=== PATIENT | male | born 1960 | race Caucasian/White ===

== ENCOUNTER 2020-01-22 16:37 | Inpatient (IN) ==
[2020-01-22] MEDS ORDERED: Ipratropium/Albuterol Neb 3 ML IH PRN (17:39)
[2020-01-22] MEDS ORDERED: Dextrose Gel 15 GM/37.5 ML TUBE PO PRN ×2 (17:39)
[2020-01-22] MEDS: *HR* Metformin 500 MG TABLET PO SCH (21:39)
[2020-01-22] MEDS: cephALEXin 500 MG CAPSULE PO SCH (21:40)
[2020-01-22] MEDS: Doxycycline 100 MG CAPSULE PO SCH (21:40)
[2020-01-22] MEDS: Mirtazapine 15 MG TABLET PO SCH (21:40)
[2020-01-22] MEDS: *HR* OxyCODONE/APAP 5/325 TABLET PO PRN (21:40)
[2020-01-22] MEDS: Gabapentin 400 MG CAPSULE PO SCH (21:40)
[2020-01-22] MEDS: GlipiZIDE 5 MG TABLET PO SCH (21:40)
[2020-01-22] MEDS: *HR* Enoxaparin 150 MG/ML SYRINGE SQ SCH (21:41)
[2020-01-23] MEDS: Baclofen 10 MG TABLET PO SCH ×3 (04:59→16:54)
[2020-01-23] MEDS: *HR* Enoxaparin 150 MG/ML SYRINGE SQ SCH ×2 (05:24→16:54)
[2020-01-23] MEDS: *HR* OxyCODONE/APAP 5/325 TABLET PO PRN ×3 (05:36→20:56)
[2020-01-23 05:49] LABS: Basophils % 0.4 %; Eosinophils # 0.4 K/mcL (0.0-0.6); Eosinophils % 5.7 %; Hematocrit 36.9 % (37.5-50.1); Hemoglobin 12.2 g/dL (12.9-16.9); Lymphocytes # 1.1 K/mcL (0.6-4.6); Lymphocytes % 15.1 %; Mean Corpuscular HGB Conc 33.1 g/dL (31.6-35.5); Mean Corpuscular Hemoglobin 29.2 pg (28.0-33.3); Mean Corpuscular Volume 88.3 fL (83.0-100.0); Mean Platelet Volume 9.5 fL (9.4-12.4); Monocytes # 0.6 K/mcL (0.0-1.3); Neutrophils # 5.1 K/mcL (1.6-8.9); Platelet Count 275 K/mcL (140-400); Red Blood Count 4.18 M/mcL (4.19-5.50); Segmented Neutrophils % 69.8 %; White Blood Count 7.3 K/mcL (4.3-11.1)
[2020-01-23 06:14] LABS: BUN/Creatinine Ratio 24 (6-26); Blood Urea Nitrogen 22 mg/dL (8-23); Calcium 8.9 mg/dL (8.6-10.3); Carbon Dioxide 30 mEq/L (23-29); Chloride 96 mEq/L (98-107); Glucose 228 mg/dL (70-105); Osmolality,Calculated 287 (280-300); Potassium 4.8 mEq/L (3.5-5.1); Sodium 133 mEq/L (136-145); eGFR For African Americans > 60 (> 60); eGFR For Non-African Americans > 60 (> 60)
[2020-01-23] MEDS: PARoxetine 20 MG TABLET PO SCH (08:38)
[2020-01-23] MEDS: *HR* Metformin 500 MG TABLET PO SCH ×2 (08:38→16:54)
[2020-01-23] MEDS: amLODIPine 5 MG TABLET PO SCH (08:39)
[2020-01-23] MEDS: Cyanocobalamin (B-12) 1,000 MCG TABLET PO SCH (08:39)
[2020-01-23] MEDS: Doxycycline 100 MG CAPSULE PO SCH ×2 (08:39→20:56)
[2020-01-23] MEDS: Furosemide 20 MG TABLET PO SCH (08:39)
[2020-01-23] MEDS: Aspirin Enteric Coated 81 MG Tablet PO SCH (08:39)
[2020-01-23] MEDS: Insulin LISPRO 300 UNITS/3 ML VIAL SQ SCH ×3 (08:39→16:55)
[2020-01-23] MEDS: Gabapentin 400 MG CAPSULE PO SCH ×4 (08:39→20:56)
[2020-01-23] MEDS: GlipiZIDE 5 MG TABLET PO SCH ×2 (08:39→16:54)
[2020-01-23] MEDS: (Linagliptin [Tradjenta] 5 MG) PO SCH (08:42)
[2020-01-23] MEDS: cephALEXin 500 MG CAPSULE PO SCH ×3 (08:45→20:56)
[2020-01-23] MEDS ORDERED: Leptospermum Honey Gel 44 ML TUBE TP SCH (09:00)
[2020-01-23] MEDS: BACLOFEN 20 MG PO SCH (18:28)
[2020-01-23] MEDS: Mirtazapine 15 MG TABLET PO SCH (20:56)
[2020-01-23] MEDS: Simethicone 80 MG TAB.CHEW PO PRN (21:50)
[2020-01-24] MEDS: Baclofen 10 MG TABLET PO SCH ×4 (01:25→23:59)
[2020-01-24] MEDS: *HR* OxyCODONE/APAP 5/325 TABLET PO PRN ×4 (03:58→23:16)
[2020-01-24] MEDS: *HR* Enoxaparin 150 MG/ML SYRINGE SQ SCH ×2 (06:02→17:14)
[2020-01-24] MEDS: Gabapentin 400 MG CAPSULE PO SCH ×4 (08:13→20:03)
[2020-01-24] MEDS: cephALEXin 500 MG CAPSULE PO SCH ×3 (08:13→20:03)
[2020-01-24] MEDS: Cyanocobalamin (B-12) 1,000 MCG TABLET PO SCH (08:13)
[2020-01-24] MEDS: PARoxetine 20 MG TABLET PO SCH (08:18)
[2020-01-24] MEDS: Aspirin Enteric Coated 81 MG Tablet PO SCH (08:18)
[2020-01-24] MEDS: *HR* Metformin 500 MG TABLET PO SCH ×2 (08:19→17:14)
[2020-01-24] MEDS: amLODIPine 5 MG TABLET PO SCH (08:19)
[2020-01-24] MEDS: Insulin LISPRO 300 UNITS/3 ML VIAL SQ SCH ×3 (08:19→17:15)
[2020-01-24] MEDS: GlipiZIDE 5 MG TABLET PO SCH ×2 (08:19→17:14)
[2020-01-24] MEDS: (Linagliptin [Tradjenta] 5 MG) PO SCH (08:19)
[2020-01-24] MEDS: Furosemide 20 MG TABLET PO SCH (08:19)
[2020-01-24] MEDS: Doxycycline 100 MG CAPSULE PO SCH ×2 (08:19→20:03)
[2020-01-24] MEDS: Simethicone 80 MG TAB.CHEW PO PRN (10:40)
[2020-01-24] MEDS: Mirtazapine 15 MG TABLET PO SCH (20:03)
[2020-01-25] MEDS: *HR* Enoxaparin 150 MG/ML SYRINGE SQ SCH ×2 (05:11→16:43)
[2020-01-25] MEDS: *HR* OxyCODONE/APAP 5/325 TABLET PO PRN ×3 (05:16→18:36)
[2020-01-25] MEDS: Insulin LISPRO 300 UNITS/3 ML VIAL SQ SCH ×3 (08:14→16:41)
[2020-01-25] MEDS: Aspirin Enteric Coated 81 MG Tablet PO SCH (08:15)
[2020-01-25] MEDS: *HR* Metformin 500 MG TABLET PO SCH ×2 (08:15→16:42)
[2020-01-25] MEDS: GlipiZIDE 5 MG TABLET PO SCH ×2 (08:15→16:42)
[2020-01-25] MEDS: Baclofen 10 MG TABLET PO SCH ×2 (08:15→16:41)
[2020-01-25] MEDS: cephALEXin 500 MG CAPSULE PO SCH ×3 (08:16→21:30)
[2020-01-25] MEDS: (Linagliptin [Tradjenta] 5 MG) PO SCH (08:16)
[2020-01-25] MEDS: Cyanocobalamin (B-12) 1,000 MCG TABLET PO SCH (08:16)
[2020-01-25] MEDS: Furosemide 20 MG TABLET PO SCH (08:16)
[2020-01-25] MEDS: Gabapentin 400 MG CAPSULE PO SCH ×4 (08:16→21:30)
[2020-01-25] MEDS: PARoxetine 20 MG TABLET PO SCH (08:16)
[2020-01-25] MEDS: amLODIPine 5 MG TABLET PO SCH (08:16)
[2020-01-25] MEDS ORDERED: Leptospermum Honey Gel 44 ML TUBE TP SCH (09:00)
[2020-01-25 14:32] LABS: Basophils % 0.6 %; Eosinophils # 0.4 K/mcL (0.0-0.6); Eosinophils % 6.5 %; Hematocrit 38.2 % (37.5-50.1); Hemoglobin 12.5 g/dL (12.9-16.9); Immature Granulocytes % 0.8 % (0-4); Lymphocytes # 1.1 K/mcL (0.6-4.6); Lymphocytes % 16.5 %; Mean Corpuscular HGB Conc 32.7 g/dL (31.6-35.5); Mean Corpuscular Hemoglobin 28.9 pg (28.0-33.3); Mean Corpuscular Volume 88.4 fL (83.0-100.0); Mean Platelet Volume 9.1 fL (9.4-12.4); Monocytes # 0.6 K/mcL (0.0-1.3); Monocytes % 8.5 %; Neutrophils # 4.3 K/mcL (1.6-8.9); Platelet Count 299 K/mcL (140-400); Red Blood Count 4.32 M/mcL (4.19-5.50); Red Cell Distribution Width 14.1 % (11.5-14.5); Segmented Neutrophils % 67.1 %; White Blood Count 6.4 K/mcL (4.3-11.1)
[2020-01-25] MEDS: Simethicone 80 MG TAB.CHEW PO PRN (16:47)
[2020-01-25 18:06] LABS: Bilirubin,Urine Negative (Negative); Blood,Urine Large (Negative); Clarity,Urine Cloudy (Clear); Color,Urine Brown (Yellow); Glucose,Urine (UA) 100 mg/dL (Normal); Ketones,Urine Negative (Negative); Leukocyte Esterase,Urine Negative (Negative); Nitrite,Urine Negative (Negative); PH,Urine 5.5 pH Units (5.0-8.0); Protein,Urine 100 mg/dL (Neg-Trace); Urobilinogen,Urine Normal (Normal)
[2020-01-25 18:07] LABS: Bacteria,Urine Moderate per hpf (None-Few); RBC,Urine TNTC per hpf (0-3); Squamous Epithelial Cell,Urine Few per hpf (None-Few); WBC,Urine 0-3 per hpf (0-3)
[2020-01-25] MEDS: Mirtazapine 15 MG TABLET PO SCH (21:30)
[2020-01-26] MEDS: Baclofen 10 MG TABLET PO SCH ×3 (00:16→17:21)
[2020-01-26] MEDS: *HR* OxyCODONE/APAP 5/325 TABLET PO PRN ×4 (00:20→18:44)
[2020-01-26] MEDS: *HR* Enoxaparin 150 MG/ML SYRINGE SQ SCH ×2 (06:21→17:21)
[2020-01-26] MEDS: Aspirin Enteric Coated 81 MG Tablet PO SCH (08:33)
[2020-01-26] MEDS: Gabapentin 400 MG CAPSULE PO SCH ×4 (08:33→21:20)
[2020-01-26] MEDS: Furosemide 20 MG TABLET PO SCH (08:34)
[2020-01-26] MEDS: Cyanocobalamin (B-12) 1,000 MCG TABLET PO SCH (08:34)
[2020-01-26] MEDS: PARoxetine 20 MG TABLET PO SCH (08:34)
[2020-01-26] MEDS: *HR* Metformin 500 MG TABLET PO SCH ×2 (08:34→17:21)
[2020-01-26] MEDS: amLODIPine 5 MG TABLET PO SCH (08:34)
[2020-01-26] MEDS: GlipiZIDE 5 MG TABLET PO SCH ×2 (08:34→17:21)
[2020-01-26] MEDS: Insulin LISPRO 300 UNITS/3 ML VIAL SQ SCH ×4 (08:34→21:17)
[2020-01-26] MEDS: (Linagliptin [Tradjenta] 5 MG) PO SCH (08:35)
[2020-01-26] MEDS: Acetaminophen 325 MG TABLET PO PRN (08:40)
[2020-01-26] MEDS: cephALEXin 500 MG CAPSULE PO SCH ×3 (08:40→21:23)
[2020-01-26 08:51] LABS: Basophils % 0.4 %; Eosinophils # 0.4 K/mcL (0.0-0.6); Eosinophils % 4.8 %; Hemoglobin 11.6 g/dL (12.9-16.9); Immature Granulocytes % 0.5 % (0-4); Lymphocytes # 1.1 K/mcL (0.6-4.6); Lymphocytes % 14.4 %; Mean Corpuscular HGB Conc 32.2 g/dL (31.6-35.5); Mean Corpuscular Hemoglobin 28.8 pg (28.0-33.3); Mean Corpuscular Volume 89.3 fL (83.0-100.0); Mean Platelet Volume 9.7 fL (9.4-12.4); Monocytes # 0.5 K/mcL (0.0-1.3); Monocytes % 7.1 %; Neutrophils # 5.3 K/mcL (1.6-8.9); Platelet Count 301 K/mcL (140-400); Red Blood Count 4.03 M/mcL (4.19-5.50); Red Cell Distribution Width 14.3 % (11.5-14.5); Segmented Neutrophils % 72.8 %; White Blood Count 7.3 K/mcL (4.3-11.1)
[2020-01-26 09:24] LABS: BUN/Creatinine Ratio 30 (6-26); Blood Urea Nitrogen 27 mg/dL (8-23); Calcium 8.5 mg/dL (8.6-10.3); Carbon Dioxide 31 mEq/L (23-29); Chloride 95 mEq/L (98-107); Glucose 240 mg/dL (70-105); Osmolality,Calculated 289 (280-300); Potassium 4.9 mEq/L (3.5-5.1); Sodium 133 mEq/L (136-145); eGFR For African Americans > 60 (> 60); eGFR For Non-African Americans > 60 (> 60)
[2020-01-26 11:44] LABS: Bilirubin,Urine Negative (Negative); Blood,Urine Large (Negative); Clarity,Urine Cloudy (Clear); Color,Urine Amber (Yellow); Glucose,Urine (UA) 250 mg/dL (Normal); Ketones,Urine Negative (Negative); Leukocyte Esterase,Urine Negative (Negative); Nitrite,Urine Negative (Negative); PH,Urine 5.5 pH Units (5.0-8.0); Protein,Urine >=300 mg/dL (Neg-Trace); Urobilinogen,Urine Normal (Normal)
[2020-01-26 11:51] LABS: Bacteria,Urine Many per hpf (None-Few); RBC,Urine TNTC per hpf (0-3); Squamous Epithelial Cell,Urine Few per hpf (None-Few)
[2020-01-26] MEDS: Mirtazapine 15 MG TABLET PO SCH (21:20)
[2020-01-27] MEDS: *HR* OxyCODONE/APAP 5/325 TABLET PO PRN ×4 (00:41→20:14)
[2020-01-27] MEDS: Baclofen 10 MG TABLET PO SCH ×4 (00:41→23:47)
[2020-01-27 06:49] LABS: Basophils % 0.3 %; Eosinophils # 0.3 K/mcL (0.0-0.6); Eosinophils % 3.5 %; Hematocrit 31.6 % (37.5-50.1); Hemoglobin 10.2 g/dL (12.9-16.9); Immature Granulocytes % 0.4 % (0-4); Lymphocytes # 1.2 K/mcL (0.6-4.6); Lymphocytes % 12.5 %; Mean Corpuscular HGB Conc 32.3 g/dL (31.6-35.5); Mean Corpuscular Volume 89.8 fL (83.0-100.0); Mean Platelet Volume 9.7 fL (9.4-12.4); Monocytes # 0.8 K/mcL (0.0-1.3); Neutrophils # 7.2 K/mcL (1.6-8.9); Platelet Count 277 K/mcL (140-400); Red Blood Count 3.52 M/mcL (4.19-5.50); Red Cell Distribution Width 14.2 % (11.5-14.5); Segmented Neutrophils % 75.3 %; White Blood Count 9.5 K/mcL (4.3-11.1)
[2020-01-27 07:13] LABS: BUN/Creatinine Ratio 31 (6-26); Blood Urea Nitrogen 31 mg/dL (8-23); Calcium 8.3 mg/dL (8.6-10.3); Carbon Dioxide 27 mEq/L (23-29); Chloride 98 mEq/L (98-107); Glucose 235 mg/dL (70-105); Osmolality,Calculated 290 (280-300); Potassium 4.8 mEq/L (3.5-5.1); Sodium 133 mEq/L (136-145); eGFR For African Americans > 60 (> 60); eGFR For Non-African Americans > 60 (> 60)
[2020-01-27] MEDS: *HR* Enoxaparin 150 MG/ML SYRINGE SQ SCH ×2 (07:53→16:33)
[2020-01-27] MEDS: cephALEXin 500 MG CAPSULE PO SCH ×3 (07:55→20:17)
[2020-01-27] MEDS: Insulin LISPRO 300 UNITS/3 ML VIAL SQ SCH ×4 (07:55→20:15)
[2020-01-27] MEDS: Cyanocobalamin (B-12) 1,000 MCG TABLET PO SCH (07:55)
[2020-01-27] MEDS: Furosemide 20 MG TABLET PO SCH (07:55)
[2020-01-27] MEDS: Aspirin Enteric Coated 81 MG Tablet PO SCH (07:55)
[2020-01-27] MEDS: amLODIPine 5 MG TABLET PO SCH (07:56)
[2020-01-27] MEDS: PARoxetine 20 MG TABLET PO SCH (07:56)
[2020-01-27] MEDS: GlipiZIDE 5 MG TABLET PO SCH ×2 (07:56→16:31)
[2020-01-27] MEDS: *HR* Metformin 500 MG TABLET PO SCH ×2 (07:56→16:32)
[2020-01-27] MEDS: Gabapentin 400 MG CAPSULE PO SCH ×4 (07:57→20:14)
[2020-01-27] MEDS: (Linagliptin [Tradjenta] 5 MG) PO SCH (07:57)
[2020-01-27] MEDS: Acetaminophen 325 MG TABLET PO PRN (12:11)
[2020-01-27] MEDS: Mirtazapine 15 MG TABLET PO SCH (20:14)
[2020-01-28] MEDS: *HR* OxyCODONE/APAP 5/325 TABLET PO PRN ×3 (03:07→15:26)
[2020-01-28 06:01] LABS: Hematocrit 28.5 % (37.5-50.1); Hemoglobin 9.5 g/dL (12.9-16.9); Mean Corpuscular HGB Conc 33.3 g/dL (31.6-35.5); Mean Corpuscular Hemoglobin 29.6 pg (28.0-33.3); Mean Corpuscular Volume 88.8 fL (83.0-100.0); Mean Platelet Volume 9.5 fL (9.4-12.4); Platelet Count 265 K/mcL (140-400); Red Blood Count 3.21 M/mcL (4.19-5.50); Red Cell Distribution Width 14.2 % (11.5-14.5); White Blood Count 11.5 K/mcL (4.3-11.1)
[2020-01-28] MEDS: *HR* Enoxaparin 150 MG/ML SYRINGE SQ SCH (06:13)
[2020-01-28] MEDS: Insulin LISPRO 300 UNITS/3 ML VIAL SQ SCH ×4 (08:36→21:11)
[2020-01-28] MEDS: Cyanocobalamin (B-12) 1,000 MCG TABLET PO SCH (08:37)
[2020-01-28] MEDS: Aspirin Enteric Coated 81 MG Tablet PO SCH (08:37)
[2020-01-28] MEDS: Baclofen 10 MG TABLET PO SCH ×3 (08:37→23:53)
[2020-01-28] MEDS: Gabapentin 400 MG CAPSULE PO SCH ×4 (08:37→21:10)
[2020-01-28] MEDS: Furosemide 20 MG TABLET PO SCH (08:37)
[2020-01-28] MEDS: amLODIPine 5 MG TABLET PO SCH (08:37)
[2020-01-28] MEDS: GlipiZIDE 5 MG TABLET PO SCH ×2 (08:37→16:15)
[2020-01-28] MEDS: PARoxetine 20 MG TABLET PO SCH (08:37)
[2020-01-28] MEDS: *HR* Metformin 500 MG TABLET PO SCH ×2 (08:37→16:17)
[2020-01-28] MEDS: (Linagliptin [Tradjenta] 5 MG) PO SCH (08:38)
[2020-01-28 09:23] LABS: Alanine Aminotransferase 38 Units/L (7-52); Albumin 3.8 g/dL (3.5-5.7); Alkaline Phosphatase 143 Units/L (34-104); Aspartate Amino Transferase 25 Units/L (13-39); BUN/Creatinine Ratio 26 (6-26); Bilirubin,Total 0.5 mg/dL (0.3-1.0); Blood Urea Nitrogen 27 mg/dL (8-23); Calcium 8.6 mg/dL (8.6-10.3); Carbon Dioxide 25 mEq/L (23-29); Chloride 95 mEq/L (98-107); Globulin 3.7 g/dL (2.4-3.5); Glucose 337 mg/dL (70-105); Osmolality,Calculated 288 (280-300); Potassium 4.9 mEq/L (3.5-5.1); Sodium 130 mEq/L (136-145); Total Protein 7.5 g/dL (6.4-8.9); eGFR For African Americans > 60 (> 60); eGFR For Non-African Americans > 60 (> 60)
[2020-01-28] MEDS: Leptospermum Honey Gel 44 ML TUBE TP SCH (11:29)
[2020-01-28] MEDS ORDERED: *HR* OxyCODONE/APAP 5/325 TABLET PO ONE (15:55)
[2020-01-28] MEDS: Methyl Salicylate/Menthol 57 APPL/57 GM TUBE TP PRN (16:15)
[2020-01-28] MEDS: Mirtazapine 15 MG TABLET PO SCH (21:10)
[2020-01-28] MEDS: *HR* OxyCODONE/APAP 10/325 TABLET PO PRN (22:03)
[2020-01-29] MEDS: *HR* OxyCODONE/APAP 10/325 TABLET PO PRN ×3 (04:07→16:48)
[2020-01-29 04:12] LABS: Hematocrit 26.4 % (37.5-50.1); Hemoglobin 8.5 g/dL (12.9-16.9)
[2020-01-29 04:31] LABS: Alanine Aminotransferase 31 Units/L (7-52); Albumin 3.1 g/dL (3.5-5.7); Albumin/Globulin Ratio 0.9 (1.1-2.2); Alkaline Phosphatase 116 Units/L (34-104); Aspartate Amino Transferase 22 Units/L (13-39); BUN/Creatinine Ratio 25 (6-26); Bilirubin,Total 0.4 mg/dL (0.3-1.0); Blood Urea Nitrogen 35 mg/dL (8-23); Calcium 8.2 mg/dL (8.6-10.3); Carbon Dioxide 28 mEq/L (23-29); Chloride 96 mEq/L (98-107); Globulin 3.5 g/dL (2.4-3.5); Potassium 4.6 mEq/L (3.5-5.1); Sodium 131 mEq/L (136-145); Total Protein 6.6 g/dL (6.4-8.9); eGFR For African Americans > 60 (> 60); eGFR For Non-African Americans 53 (> 60)
[2020-01-29 07:05] LABS: Glucose 229 mg/dL (70-105); Osmolality,Calculated 287 (280-300)
[2020-01-29] MEDS: amLODIPine 5 MG TABLET PO SCH (08:05)
[2020-01-29] MEDS: Cyanocobalamin (B-12) 1,000 MCG TABLET PO SCH (08:05)
[2020-01-29] MEDS: Gabapentin 400 MG CAPSULE PO SCH ×4 (08:05→19:58)
[2020-01-29] MEDS: Aspirin Enteric Coated 81 MG Tablet PO SCH (08:05)
[2020-01-29] MEDS: Furosemide 20 MG TABLET PO SCH (08:05)
[2020-01-29] MEDS: Baclofen 10 MG TABLET PO SCH ×2 (08:05→16:47)
[2020-01-29] MEDS: GlipiZIDE 5 MG TABLET PO SCH ×2 (08:05→16:47)
[2020-01-29] MEDS: PARoxetine 20 MG TABLET PO SCH (08:05)
[2020-01-29] MEDS: (Linagliptin [Tradjenta] 5 MG) PO SCH (08:06)
[2020-01-29] MEDS: Leptospermum Honey Gel 44 ML TUBE TP SCH ×2 (08:06)
[2020-01-29] MEDS: *HR* Metformin 500 MG TABLET PO SCH ×2 (08:06→16:48)
[2020-01-29] MEDS: Insulin LISPRO 300 UNITS/3 ML VIAL SQ SCH ×4 (08:07→19:58)
[2020-01-29] MEDS: Methyl Salicylate/Menthol 57 APPL/57 GM TUBE TP PRN ×2 (08:19→20:01)
[2020-01-29] MEDS ORDERED: Insulin DETEMIR 100 UNIT/ML X5UNITS SQ SCH (12:00)
[2020-01-29] MEDS: Mirtazapine 15 MG TABLET PO SCH (19:57)
[2020-01-29 20:00] LABS: Hematocrit 26.3 % (37.5-50.1); Hemoglobin 8.5 g/dL (12.9-16.9)
[2020-01-29] MEDS ORDERED: Insulin DETEMIR 100 UNIT/ML per UNIT SQ ONE (21:00)
[2020-01-30] MEDS: *HR* OxyCODONE/APAP 10/325 TABLET PO PRN ×4 (00:11→20:28)
[2020-01-30] MEDS: Baclofen 10 MG TABLET PO SCH ×3 (00:11→16:54)
[2020-01-30 05:34] LABS: Hematocrit 25.7 % (37.5-50.1); Hemoglobin 8.4 g/dL (12.9-16.9)
[2020-01-30] MEDS: PARoxetine 20 MG TABLET PO SCH (08:05)
[2020-01-30] MEDS: amLODIPine 5 MG TABLET PO SCH (08:06)
[2020-01-30] MEDS: GlipiZIDE 5 MG TABLET PO SCH ×2 (08:06→16:53)
[2020-01-30] MEDS: Methyl Salicylate/Menthol 57 APPL/57 GM TUBE TP PRN ×2 (08:06→20:29)
[2020-01-30] MEDS: Cyanocobalamin (B-12) 1,000 MCG TABLET PO SCH (08:06)
[2020-01-30] MEDS: Aspirin Enteric Coated 81 MG Tablet PO SCH (08:06)
[2020-01-30] MEDS: Gabapentin 400 MG CAPSULE PO SCH ×4 (08:06→20:28)
[2020-01-30] MEDS: *HR* Metformin 500 MG TABLET PO SCH ×2 (08:06→16:54)
[2020-01-30] MEDS: Insulin LISPRO 300 UNITS/3 ML VIAL SQ SCH ×7 (08:07→20:29)
[2020-01-30] MEDS: Leptospermum Honey Gel 44 ML TUBE TP SCH (08:08)
[2020-01-30] MEDS: Insulin DETEMIR 100 UNIT/ML X5UNITS SQ SCH ×2 (08:08→20:28)
[2020-01-30] MEDS: (Linagliptin [Tradjenta] 5 MG) PO SCH (08:26)
[2020-01-30] MEDS: Mirtazapine 15 MG TABLET PO SCH (20:28)
[2020-01-31] MEDS: Baclofen 10 MG TABLET PO SCH ×4 (01:50→23:38)
[2020-01-31] MEDS: *HR* OxyCODONE/APAP 10/325 TABLET PO PRN ×4 (03:26→21:42)
[2020-01-31 07:19] LABS: Hemoglobin 8.3 g/dL (12.9-16.9)
[2020-01-31] MEDS: GlipiZIDE 5 MG TABLET PO SCH ×2 (08:39→15:36)
[2020-01-31] MEDS: Aspirin Enteric Coated 81 MG Tablet PO SCH (08:39)
[2020-01-31] MEDS: *HR* Metformin 500 MG TABLET PO SCH ×2 (08:40→15:36)
[2020-01-31] MEDS: Gabapentin 400 MG CAPSULE PO SCH ×4 (08:40→21:14)
[2020-01-31] MEDS: PARoxetine 20 MG TABLET PO SCH (08:40)
[2020-01-31] MEDS: Cyanocobalamin (B-12) 1,000 MCG TABLET PO SCH (08:40)
[2020-01-31] MEDS: amLODIPine 5 MG TABLET PO SCH (08:40)
[2020-01-31] MEDS: Insulin LISPRO 300 UNITS/3 ML VIAL SQ SCH ×7 (08:40→20:59)
[2020-01-31] MEDS: Insulin DETEMIR 100 UNIT/ML X5UNITS SQ SCH ×2 (08:41→21:15)
[2020-01-31] MEDS: (Linagliptin [Tradjenta] 5 MG) PO SCH (08:42)
[2020-01-31] MEDS: Leptospermum Honey Gel 44 ML TUBE TP SCH (08:42)
[2020-01-31] MEDS: Methyl Salicylate/Menthol 57 APPL/57 GM TUBE TP PRN (12:45)
[2020-01-31] MEDS: Mirtazapine 15 MG TABLET PO SCH (21:15)
[2020-02-01] MEDS: *HR* OxyCODONE/APAP 10/325 TABLET PO PRN ×3 (04:13→16:58)
[2020-02-01 04:40] LABS: Basophils % 0.5 %; Eosinophils # 0.6 K/mcL (0.0-0.6); Eosinophils % 6.7 %; Hematocrit 27.6 % (37.5-50.1); Immature Granulocytes % 0.5 % (0-4); Lymphocytes # 1.2 K/mcL (0.6-4.6); Lymphocytes % 13.5 %; Mean Corpuscular HGB Conc 32.6 g/dL (31.6-35.5); Mean Corpuscular Hemoglobin 29.2 pg (28.0-33.3); Mean Corpuscular Volume 89.6 fL (83.0-100.0); Mean Platelet Volume 9.2 fL (9.4-12.4); Monocytes # 0.7 K/mcL (0.0-1.3); Monocytes % 7.5 %; Neutrophils # 6.2 K/mcL (1.6-8.9); Platelet Count 453 K/mcL (140-400); Red Blood Count 3.08 M/mcL (4.19-5.50); Red Cell Distribution Width 14.3 % (11.5-14.5); Segmented Neutrophils % 71.3 %; White Blood Count 8.7 K/mcL (4.3-11.1)
[2020-02-01 05:11] LABS: BUN/Creatinine Ratio 28 (6-26); Blood Urea Nitrogen 27 mg/dL (8-23); Calcium 8.7 mg/dL (8.6-10.3); Carbon Dioxide 30 mEq/L (23-29); Chloride 98 mEq/L (98-107); Glucose 119 mg/dL (70-105); Osmolality,Calculated 286 (280-300); Potassium 4.8 mEq/L (3.5-5.1); Sodium 135 mEq/L (136-145); eGFR For African Americans > 60 (> 60); eGFR For Non-African Americans > 60 (> 60)
[2020-02-01] MEDS: Insulin LISPRO 300 UNITS/3 ML VIAL SQ SCH ×7 (09:14→20:44)
[2020-02-01] MEDS: Aspirin Enteric Coated 81 MG Tablet PO SCH (09:28)
[2020-02-01] MEDS: PARoxetine 20 MG TABLET PO SCH (09:28)
[2020-02-01] MEDS: Cyanocobalamin (B-12) 1,000 MCG TABLET PO SCH (09:28)
[2020-02-01] MEDS: GlipiZIDE 5 MG TABLET PO SCH ×2 (09:28→16:58)
[2020-02-01] MEDS: *HR* Metformin 500 MG TABLET PO SCH ×2 (09:28→16:57)
[2020-02-01] MEDS: amLODIPine 5 MG TABLET PO SCH (09:29)
[2020-02-01] MEDS: Gabapentin 400 MG CAPSULE PO SCH ×4 (09:29→20:06)
[2020-02-01] MEDS: Baclofen 10 MG TABLET PO SCH ×2 (09:29→16:58)
[2020-02-01] MEDS: Leptospermum Honey Gel 44 ML TUBE TP SCH (09:30)
[2020-02-01] MEDS: Insulin DETEMIR 100 UNIT/ML X5UNITS SQ SCH ×2 (09:30→20:05)
[2020-02-01] MEDS: (Linagliptin [Tradjenta] 5 MG) PO SCH (09:31)
[2020-02-01] MEDS: Mirtazapine 15 MG TABLET PO SCH (20:06)
[2020-02-02] MEDS: *HR* OxyCODONE/APAP 10/325 TABLET PO PRN ×4 (00:03→21:53)
[2020-02-02] MEDS: Methyl Salicylate/Menthol 57 APPL/57 GM TUBE TP PRN ×2 (04:29→18:13)
[2020-02-02 07:07] LABS: Basophils % 0.6 %; Eosinophils # 0.5 K/mcL (0.0-0.6); Eosinophils % 6.7 %; Hematocrit 26.6 % (37.5-50.1); Hemoglobin 8.4 g/dL (12.9-16.9); Immature Granulocytes % 0.6 % (0-4); Lymphocytes # 1.2 K/mcL (0.6-4.6); Lymphocytes % 16.4 %; Mean Corpuscular HGB Conc 31.6 g/dL (31.6-35.5); Mean Corpuscular Hemoglobin 28.3 pg (28.0-33.3); Mean Corpuscular Volume 89.6 fL (83.0-100.0); Mean Platelet Volume 9.2 fL (9.4-12.4); Monocytes # 0.7 K/mcL (0.0-1.3); Monocytes % 9.6 %; Neutrophils # 4.8 K/mcL (1.6-8.9); Platelet Count 430 K/mcL (140-400); Red Blood Count 2.97 M/mcL (4.19-5.50); Red Cell Distribution Width 14.1 % (11.5-14.5); Segmented Neutrophils % 66.1 %; White Blood Count 7.3 K/mcL (4.3-11.1)
[2020-02-02] MEDS: Insulin LISPRO 300 UNITS/3 ML VIAL SQ SCH ×7 (07:37→21:16)
[2020-02-02] MEDS: (Linagliptin [Tradjenta] 5 MG) PO SCH (07:50)
[2020-02-02] MEDS: Aspirin Enteric Coated 81 MG Tablet PO SCH (08:10)
[2020-02-02] MEDS: Cyanocobalamin (B-12) 1,000 MCG TABLET PO SCH (08:10)
[2020-02-02] MEDS: Gabapentin 400 MG CAPSULE PO SCH ×4 (08:10→20:28)
[2020-02-02] MEDS: PARoxetine 20 MG TABLET PO SCH (08:10)
[2020-02-02] MEDS: amLODIPine 5 MG TABLET PO SCH (08:10)
[2020-02-02] MEDS: GlipiZIDE 5 MG TABLET PO SCH ×2 (08:11→17:22)
[2020-02-02] MEDS: Baclofen 10 MG TABLET PO SCH ×4 (08:11→23:53)
[2020-02-02] MEDS: *HR* Metformin 500 MG TABLET PO SCH ×2 (08:11→17:22)
[2020-02-02] MEDS: Furosemide 20 MG TABLET PO SCH (08:11)
[2020-02-02] MEDS: Leptospermum Honey Gel 44 ML TUBE TP SCH (08:12)
[2020-02-02] MEDS: Insulin DETEMIR 100 UNIT/ML X5UNITS SQ SCH ×2 (09:32→20:29)
[2020-02-02] MEDS: Mirtazapine 15 MG TABLET PO SCH (20:29)
[2020-02-03] MEDS: *HR* OxyCODONE/APAP 10/325 TABLET PO PRN ×3 (04:59→17:52)
[2020-02-03 05:54] LABS: Basophils % 0.5 %; Eosinophils # 0.6 K/mcL (0.0-0.6); Eosinophils % 7.2 %; Hematocrit 27.1 % (37.5-50.1); Hemoglobin 8.6 g/dL (12.9-16.9); Immature Granulocytes % 0.6 % (0-4); Lymphocytes # 1.2 K/mcL (0.6-4.6); Lymphocytes % 14.1 %; Mean Corpuscular HGB Conc 31.7 g/dL (31.6-35.5); Mean Corpuscular Hemoglobin 28.5 pg (28.0-33.3); Mean Corpuscular Volume 89.7 fL (83.0-100.0); Monocytes # 0.9 K/mcL (0.0-1.3); Monocytes % 10.4 %; Neutrophils # 5.5 K/mcL (1.6-8.9); Platelet Count 440 K/mcL (140-400); Red Blood Count 3.02 M/mcL (4.19-5.50); Red Cell Distribution Width 14.5 % (11.5-14.5); Segmented Neutrophils % 67.2 %; White Blood Count 8.2 K/mcL (4.3-11.1)
[2020-02-03] MEDS: Insulin LISPRO 300 UNITS/3 ML VIAL SQ SCH ×7 (08:39→20:34)
[2020-02-03] MEDS: Gabapentin 400 MG CAPSULE PO SCH ×4 (08:45→20:34)
[2020-02-03] MEDS: Aspirin Enteric Coated 81 MG Tablet PO SCH (08:45)
[2020-02-03] MEDS: Insulin DETEMIR 100 UNIT/ML X5UNITS SQ SCH ×2 (08:45→20:35)
[2020-02-03] MEDS: Baclofen 10 MG TABLET PO SCH ×2 (08:45→16:19)
[2020-02-03] MEDS: PARoxetine 20 MG TABLET PO SCH (08:45)
[2020-02-03] MEDS: Cyanocobalamin (B-12) 1,000 MCG TABLET PO SCH (08:45)
[2020-02-03] MEDS: amLODIPine 5 MG TABLET PO SCH (08:46)
[2020-02-03] MEDS: *HR* Metformin 500 MG TABLET PO SCH ×2 (08:46→16:19)
[2020-02-03] MEDS: (Linagliptin [Tradjenta] 5 MG) PO SCH (08:46)
[2020-02-03] MEDS: GlipiZIDE 5 MG TABLET PO SCH ×2 (08:46→16:19)
[2020-02-03] MEDS: Furosemide 20 MG TABLET PO SCH (08:46)
[2020-02-03] MEDS: Leptospermum Honey Gel 44 ML TUBE TP SCH (08:47)
[2020-02-03] MEDS: Methyl Salicylate/Menthol 57 APPL/57 GM TUBE TP PRN (11:41)
[2020-02-03] MEDS: Apixaban 5 MG TABLET PO SCH (20:34)
[2020-02-03] MEDS: Mirtazapine 15 MG TABLET PO SCH (20:34)
[2020-02-04] MEDS: Baclofen 10 MG TABLET PO SCH ×3 (00:04→16:39)
[2020-02-04] MEDS: *HR* OxyCODONE/APAP 10/325 TABLET PO PRN ×4 (00:06→18:33)
[2020-02-04] MEDS: Acetaminophen 325 MG TABLET PO PRN ×2 (05:10→16:41)
[2020-02-04] MEDS: Cyanocobalamin (B-12) 1,000 MCG TABLET PO SCH (08:21)
[2020-02-04] MEDS: Gabapentin 400 MG CAPSULE PO SCH ×4 (08:21→21:41)
[2020-02-04] MEDS: amLODIPine 5 MG TABLET PO SCH (08:21)
[2020-02-04] MEDS: Leptospermum Honey Gel 44 ML TUBE TP SCH (08:22)
[2020-02-04] MEDS: *HR* Metformin 500 MG TABLET PO SCH ×2 (08:22→16:39)
[2020-02-04] MEDS: PARoxetine 20 MG TABLET PO SCH (08:22)
[2020-02-04] MEDS: Aspirin Enteric Coated 81 MG Tablet PO SCH (08:22)
[2020-02-04] MEDS: Methyl Salicylate/Menthol 57 APPL/57 GM TUBE TP PRN (08:22)
[2020-02-04] MEDS: Apixaban 5 MG TABLET PO SCH ×2 (08:22→21:39)
[2020-02-04] MEDS: GlipiZIDE 5 MG TABLET PO SCH ×2 (08:22→16:39)
[2020-02-04] MEDS: Furosemide 20 MG TABLET PO SCH (08:22)
[2020-02-04] MEDS: (Linagliptin [Tradjenta] 5 MG) PO SCH (08:23)
[2020-02-04] MEDS: Insulin LISPRO 300 UNITS/3 ML VIAL SQ SCH ×7 (08:23→21:40)
[2020-02-04] MEDS: Insulin DETEMIR 100 UNIT/ML X5UNITS SQ SCH ×2 (08:25→21:40)
[2020-02-04] MEDS: Mirtazapine 15 MG TABLET PO SCH (21:41)
[2020-02-05] MEDS: Baclofen 10 MG TABLET PO SCH ×3 (01:34→16:27)
[2020-02-05] MEDS: *HR* OxyCODONE/APAP 10/325 TABLET PO PRN ×4 (01:34→20:39)
[2020-02-05 06:06] LABS: Hematocrit 26.2 % (37.5-50.1); Hemoglobin 8.3 g/dL (12.9-16.9); Mean Corpuscular HGB Conc 31.7 g/dL (31.6-35.5); Mean Corpuscular Hemoglobin 28.5 pg (28.0-33.3); Mean Platelet Volume 8.5 fL (9.4-12.4); Platelet Count 386 K/mcL (140-400); Red Blood Count 2.91 M/mcL (4.19-5.50); Red Cell Distribution Width 14.4 % (11.5-14.5); White Blood Count 7.4 K/mcL (4.3-11.1)
[2020-02-05 06:27] LABS: BUN/Creatinine Ratio 31 (6-26); Blood Urea Nitrogen 28 mg/dL (8-23); Calcium 8.5 mg/dL (8.6-10.3); Carbon Dioxide 29 mEq/L (23-29); Chloride 100 mEq/L (98-107); Glucose 96 mg/dL (70-105); Osmolality,Calculated 287 (280-300); Potassium 4.5 mEq/L (3.5-5.1); Sodium 136 mEq/L (136-145); eGFR For African Americans > 60 (> 60); eGFR For Non-African Americans > 60 (> 60)
[2020-02-05] MEDS: Insulin LISPRO 300 UNITS/3 ML VIAL SQ SCH ×7 (07:51→20:40)
[2020-02-05] MEDS: (Linagliptin [Tradjenta] 5 MG) PO SCH (07:52)
[2020-02-05] MEDS: PARoxetine 20 MG TABLET PO SCH (08:00)
[2020-02-05] MEDS: *HR* Metformin 500 MG TABLET PO SCH ×2 (08:00→16:27)
[2020-02-05] MEDS: Aspirin Enteric Coated 81 MG Tablet PO SCH (08:00)
[2020-02-05] MEDS: Furosemide 20 MG TABLET PO SCH (08:00)
[2020-02-05] MEDS: Apixaban 5 MG TABLET PO SCH ×2 (08:00→20:39)
[2020-02-05] MEDS: Cyanocobalamin (B-12) 1,000 MCG TABLET PO SCH (08:01)
[2020-02-05] MEDS: Gabapentin 400 MG CAPSULE PO SCH ×4 (08:01→20:39)
[2020-02-05] MEDS: GlipiZIDE 5 MG TABLET PO SCH ×2 (08:01→16:27)
[2020-02-05] MEDS: amLODIPine 5 MG TABLET PO SCH (08:01)
[2020-02-05] MEDS: Insulin DETEMIR 100 UNIT/ML X5UNITS SQ SCH ×2 (09:22→20:40)
[2020-02-05] MEDS: Mirtazapine 15 MG TABLET PO SCH (20:39)
[2020-02-06] MEDS: *HR* OxyCODONE/APAP 10/325 TABLET PO PRN ×4 (02:41→21:13)
[2020-02-06] MEDS: Insulin LISPRO 300 UNITS/3 ML VIAL SQ SCH ×7 (07:43→21:14)
[2020-02-06] MEDS: Aspirin Enteric Coated 81 MG Tablet PO SCH (08:01)
[2020-02-06] MEDS: PARoxetine 20 MG TABLET PO SCH (08:01)
[2020-02-06] MEDS: Baclofen 10 MG TABLET PO SCH ×4 (08:02→23:45)
[2020-02-06] MEDS: *HR* Metformin 500 MG TABLET PO SCH ×2 (08:02→16:53)
[2020-02-06] MEDS: amLODIPine 5 MG TABLET PO SCH (08:02)
[2020-02-06] MEDS: GlipiZIDE 5 MG TABLET PO SCH ×2 (08:02→16:53)
[2020-02-06] MEDS: Gabapentin 400 MG CAPSULE PO SCH ×4 (08:02→21:13)
[2020-02-06] MEDS: Furosemide 20 MG TABLET PO SCH (08:02)
[2020-02-06] MEDS: Cyanocobalamin (B-12) 1,000 MCG TABLET PO SCH (08:02)
[2020-02-06] MEDS: (Linagliptin [Tradjenta] 5 MG) PO SCH (08:02)
[2020-02-06] MEDS: Apixaban 5 MG TABLET PO SCH ×2 (08:04→21:14)
[2020-02-06] MEDS: Insulin DETEMIR 100 UNIT/ML X5UNITS SQ SCH ×2 (08:09→21:14)
[2020-02-06] MEDS: Methyl Salicylate/Menthol 57 APPL/57 GM TUBE TP PRN ×2 (13:23→21:13)
[2020-02-06] MEDS: Mirtazapine 15 MG TABLET PO SCH (21:13)
[2020-02-07] MEDS: *HR* OxyCODONE/APAP 10/325 TABLET PO PRN ×4 (03:24→21:49)
[2020-02-07] MEDS: Insulin LISPRO 300 UNITS/3 ML VIAL SQ SCH ×7 (08:11→21:40)
[2020-02-07 08:39] LABS: Hematocrit 29.3 % (37.5-50.1); Hemoglobin 9.3 g/dL (12.9-16.9); Mean Corpuscular HGB Conc 31.7 g/dL (31.6-35.5); Mean Corpuscular Hemoglobin 28.5 pg (28.0-33.3); Mean Corpuscular Volume 89.9 fL (83.0-100.0); Mean Platelet Volume 8.9 fL (9.4-12.4); Platelet Count 386 K/mcL (140-400); Red Blood Count 3.26 M/mcL (4.19-5.50); Red Cell Distribution Width 14.8 % (11.5-14.5)
[2020-02-07 08:51] LABS: BUN/Creatinine Ratio 24 (6-26); Blood Urea Nitrogen 23 mg/dL (8-23); Calcium 8.6 mg/dL (8.6-10.3); Carbon Dioxide 28 mEq/L (23-29); Chloride 99 mEq/L (98-107); Glucose 202 mg/dL (70-105); Osmolality,Calculated 287 (280-300); Potassium 4.9 mEq/L (3.5-5.1); Sodium 134 mEq/L (136-145); eGFR For African Americans > 60 (> 60); eGFR For Non-African Americans > 60 (> 60)
[2020-02-07] MEDS: Insulin DETEMIR 100 UNIT/ML X5UNITS SQ SCH ×2 (09:00→21:42)
[2020-02-07] MEDS: amLODIPine 5 MG TABLET PO SCH (09:01)
[2020-02-07] MEDS: *HR* Metformin 500 MG TABLET PO SCH ×2 (09:01→15:48)
[2020-02-07] MEDS: Cyanocobalamin (B-12) 1,000 MCG TABLET PO SCH (09:01)
[2020-02-07] MEDS: GlipiZIDE 5 MG TABLET PO SCH ×2 (09:01→15:48)
[2020-02-07] MEDS: Furosemide 20 MG TABLET PO SCH (09:01)
[2020-02-07] MEDS: Apixaban 5 MG TABLET PO SCH ×2 (09:01→21:43)
[2020-02-07] MEDS: Gabapentin 400 MG CAPSULE PO SCH ×4 (09:01→21:43)
[2020-02-07] MEDS: (Linagliptin [Tradjenta] 5 MG) PO SCH (09:01)
[2020-02-07] MEDS: Aspirin Enteric Coated 81 MG Tablet PO SCH (09:01)
[2020-02-07] MEDS: PARoxetine 20 MG TABLET PO SCH (09:01)
[2020-02-07] MEDS: Baclofen 10 MG TABLET PO SCH ×3 (09:01→23:14)
[2020-02-07] MEDS: Mirtazapine 15 MG TABLET PO SCH (21:42)
[2020-02-08] MEDS: *HR* OxyCODONE/APAP 10/325 TABLET PO PRN ×4 (04:27→23:48)
[2020-02-08] MEDS: Insulin LISPRO 300 UNITS/3 ML VIAL SQ SCH ×7 (09:10→20:53)
[2020-02-08] MEDS: *HR* Metformin 500 MG TABLET PO SCH ×2 (09:11→17:10)
[2020-02-08] MEDS: PARoxetine 20 MG TABLET PO SCH (09:11)
[2020-02-08] MEDS: GlipiZIDE 5 MG TABLET PO SCH ×2 (09:12→17:10)
[2020-02-08] MEDS: amLODIPine 5 MG TABLET PO SCH (09:12)
[2020-02-08] MEDS: Insulin DETEMIR 100 UNIT/ML X5UNITS SQ SCH ×2 (09:12→20:53)
[2020-02-08] MEDS: Cyanocobalamin (B-12) 1,000 MCG TABLET PO SCH (09:12)
[2020-02-08] MEDS: Aspirin Enteric Coated 81 MG Tablet PO SCH (09:12)
[2020-02-08] MEDS: Gabapentin 400 MG CAPSULE PO SCH ×4 (09:12→20:53)
[2020-02-08] MEDS: Baclofen 10 MG TABLET PO SCH ×3 (09:12→23:49)
[2020-02-08] MEDS: Furosemide 20 MG TABLET PO SCH (09:12)
[2020-02-08] MEDS: Apixaban 5 MG TABLET PO SCH ×2 (09:12→20:52)
[2020-02-08] MEDS: Methyl Salicylate/Menthol 57 APPL/57 GM TUBE TP PRN (09:13)
[2020-02-08] MEDS: (Linagliptin [Tradjenta] 5 MG) PO SCH (19:26)
[2020-02-08] MEDS: Mirtazapine 15 MG TABLET PO SCH (20:53)
[2020-02-09 06:13] LABS: Hematocrit 28.6 % (37.5-50.1); Hemoglobin 9.1 g/dL (12.9-16.9); Mean Corpuscular HGB Conc 31.8 g/dL (31.6-35.5); Mean Corpuscular Hemoglobin 28.3 pg (28.0-33.3); Mean Corpuscular Volume 89.1 fL (83.0-100.0); Mean Platelet Volume 8.9 fL (9.4-12.4); Platelet Count 338 K/mcL (140-400); Red Blood Count 3.21 M/mcL (4.19-5.50); Red Cell Distribution Width 14.7 % (11.5-14.5); White Blood Count 7.3 K/mcL (4.3-11.1)
[2020-02-09 06:33] LABS: BUN/Creatinine Ratio 24 (6-26); Blood Urea Nitrogen 21 mg/dL (8-23); Calcium 8.7 mg/dL (8.6-10.3); Carbon Dioxide 30 mEq/L (23-29); Chloride 101 mEq/L (98-107); Glucose 74 mg/dL (70-105); Osmolality,Calculated 284 (280-300); Potassium 4.6 mEq/L (3.5-5.1); Sodium 136 mEq/L (136-145); eGFR For African Americans > 60 (> 60); eGFR For Non-African Americans > 60 (> 60)
[2020-02-09] MEDS: *HR* OxyCODONE/APAP 10/325 TABLET PO PRN ×3 (06:37→20:46)
[2020-02-09] MEDS: Insulin LISPRO 300 UNITS/3 ML VIAL SQ SCH ×7 (08:57→21:15)
[2020-02-09] MEDS: Baclofen 10 MG TABLET PO SCH ×2 (09:03→17:24)
[2020-02-09] MEDS: amLODIPine 5 MG TABLET PO SCH (09:03)
[2020-02-09] MEDS: Gabapentin 400 MG CAPSULE PO SCH ×4 (09:03→20:45)
[2020-02-09] MEDS: Cyanocobalamin (B-12) 1,000 MCG TABLET PO SCH (09:03)
[2020-02-09] MEDS: Insulin DETEMIR 100 UNIT/ML X5UNITS SQ SCH ×2 (09:03→20:46)
[2020-02-09] MEDS: Apixaban 5 MG TABLET PO SCH ×2 (09:04→20:45)
[2020-02-09] MEDS: Aspirin Enteric Coated 81 MG Tablet PO SCH (09:04)
[2020-02-09] MEDS: *HR* Metformin 500 MG TABLET PO SCH ×2 (09:04→17:24)
[2020-02-09] MEDS: GlipiZIDE 5 MG TABLET PO SCH ×2 (09:04→17:24)
[2020-02-09] MEDS: PARoxetine 20 MG TABLET PO SCH (09:04)
[2020-02-09] MEDS: Furosemide 20 MG TABLET PO SCH (09:04)
[2020-02-09] MEDS: Methyl Salicylate/Menthol 57 APPL/57 GM TUBE TP PRN (09:12)
[2020-02-09] MEDS: Mirtazapine 15 MG TABLET PO SCH (20:45)
[2020-02-10] MEDS: Baclofen 10 MG TABLET PO SCH ×3 (00:25→15:43)
[2020-02-10] MEDS: Methyl Salicylate/Menthol 57 APPL/57 GM TUBE TP PRN (00:27)
[2020-02-10] MEDS: *HR* OxyCODONE/APAP 10/325 TABLET PO PRN ×4 (03:18→21:49)
[2020-02-10] MEDS: Insulin LISPRO 300 UNITS/3 ML VIAL SQ SCH ×7 (07:35→21:42)
[2020-02-10] MEDS: Insulin DETEMIR 100 UNIT/ML X5UNITS SQ SCH ×2 (08:31→21:42)
[2020-02-10] MEDS: Gabapentin 400 MG CAPSULE PO SCH ×4 (08:32→21:42)
[2020-02-10] MEDS: amLODIPine 5 MG TABLET PO SCH (08:33)
[2020-02-10] MEDS: Apixaban 5 MG TABLET PO SCH ×2 (08:33→21:41)
[2020-02-10] MEDS: GlipiZIDE 5 MG TABLET PO SCH ×2 (08:33→15:43)
[2020-02-10] MEDS: Aspirin Enteric Coated 81 MG Tablet PO SCH (08:33)
[2020-02-10] MEDS: PARoxetine 20 MG TABLET PO SCH (08:33)
[2020-02-10] MEDS: Cyanocobalamin (B-12) 1,000 MCG TABLET PO SCH (08:33)
[2020-02-10] MEDS: *HR* Metformin 500 MG TABLET PO SCH ×2 (08:34→15:42)
[2020-02-10] MEDS: Furosemide 20 MG TABLET PO SCH (08:34)
[2020-02-10] MEDS: Mirtazapine 15 MG TABLET PO SCH (21:42)
[2020-02-11] MEDS: Baclofen 10 MG TABLET PO SCH ×3 (00:12→16:44)
[2020-02-11] MEDS: *HR* OxyCODONE/APAP 10/325 TABLET PO PRN ×4 (04:39→23:59)
[2020-02-11] MEDS: Methyl Salicylate/Menthol 57 APPL/57 GM TUBE TP PRN ×2 (04:40→20:02)
[2020-02-11] MEDS: Gabapentin 400 MG CAPSULE PO SCH ×4 (08:48→20:04)
[2020-02-11] MEDS: amLODIPine 5 MG TABLET PO SCH (08:48)
[2020-02-11] MEDS: Aspirin Enteric Coated 81 MG Tablet PO SCH (08:48)
[2020-02-11] MEDS: Apixaban 5 MG TABLET PO SCH ×2 (08:48→20:04)
[2020-02-11] MEDS: Cyanocobalamin (B-12) 1,000 MCG TABLET PO SCH (08:48)
[2020-02-11] MEDS: Furosemide 20 MG TABLET PO SCH (08:49)
[2020-02-11] MEDS: GlipiZIDE 5 MG TABLET PO SCH ×2 (08:49→16:44)
[2020-02-11] MEDS: Insulin LISPRO 300 UNITS/3 ML VIAL SQ SCH ×7 (08:49→22:41)
[2020-02-11] MEDS: PARoxetine 20 MG TABLET PO SCH (08:49)
[2020-02-11] MEDS: *HR* Metformin 500 MG TABLET PO SCH ×2 (08:49→16:44)
[2020-02-11] MEDS: Insulin DETEMIR 100 UNIT/ML X5UNITS SQ SCH ×2 (08:50→20:05)
[2020-02-11] MEDS: Mirtazapine 15 MG TABLET PO SCH (20:05)
[2020-02-12] MEDS: amLODIPine 5 MG TABLET PO SCH (08:07)
[2020-02-12] MEDS: Baclofen 10 MG TABLET PO SCH ×3 (08:07→16:37)
[2020-02-12] MEDS: Gabapentin 400 MG CAPSULE PO SCH ×4 (08:07→20:08)
[2020-02-12] MEDS: *HR* OxyCODONE/APAP 10/325 TABLET PO PRN ×3 (08:07→20:09)
[2020-02-12] MEDS: Furosemide 20 MG TABLET PO SCH (08:08)
[2020-02-12] MEDS: Cyanocobalamin (B-12) 1,000 MCG TABLET PO SCH (08:08)
[2020-02-12] MEDS: PARoxetine 20 MG TABLET PO SCH (08:08)
[2020-02-12] MEDS: Insulin LISPRO 300 UNITS/3 ML VIAL SQ SCH ×7 (08:08→21:57)
[2020-02-12] MEDS: Apixaban 5 MG TABLET PO SCH ×2 (08:08→20:09)
[2020-02-12] MEDS: *HR* Metformin 500 MG TABLET PO SCH ×2 (08:08→16:37)
[2020-02-12] MEDS: Aspirin Enteric Coated 81 MG Tablet PO SCH (08:08)
[2020-02-12] MEDS: GlipiZIDE 5 MG TABLET PO SCH ×2 (08:08→16:37)
[2020-02-12] MEDS: Insulin DETEMIR 100 UNIT/ML X5UNITS SQ SCH ×2 (08:17→20:09)
[2020-02-12] MEDS: Mirtazapine 15 MG TABLET PO SCH (20:08)
[2020-02-12] MEDS: Methyl Salicylate/Menthol 57 APPL/57 GM TUBE TP PRN (20:12)
[2020-02-13] MEDS: Baclofen 10 MG TABLET PO SCH ×2 (00:45→08:25)
[2020-02-13] MEDS: *HR* OxyCODONE/APAP 10/325 TABLET PO PRN ×2 (02:58→09:44)
[2020-02-13 06:26] VITALS: BP 144/80
[2020-02-13] MEDS: Insulin LISPRO 300 UNITS/3 ML VIAL SQ SCH ×2 (08:17→08:18)
[2020-02-13] MEDS: Furosemide 20 MG TABLET PO SCH (08:25)
[2020-02-13] MEDS: Gabapentin 400 MG CAPSULE PO SCH (08:25)
[2020-02-13] MEDS: Cyanocobalamin (B-12) 1,000 MCG TABLET PO SCH (08:25)
[2020-02-13] MEDS: Apixaban 5 MG TABLET PO SCH (08:25)
[2020-02-13] MEDS: *HR* Metformin 500 MG TABLET PO SCH (08:25)
[2020-02-13] MEDS: GlipiZIDE 5 MG TABLET PO SCH (08:25)
[2020-02-13] MEDS: amLODIPine 5 MG TABLET PO SCH (08:25)
[2020-02-13] MEDS: PARoxetine 20 MG TABLET PO SCH (08:25)
[2020-02-13] MEDS: Aspirin Enteric Coated 81 MG Tablet PO SCH (08:25)
[2020-02-13] MEDS: Insulin DETEMIR 100 UNIT/ML X5UNITS SQ SCH (08:26)
== END 2020-02-13 10:40 | disposition home health service (06) | DRG 560 ==
LOC: INPPIK 19:00
PROVIDERS: ADMIT Family Medicine; ATTEND Family Medicine

== ENCOUNTER 2020-02-18 14:33 | Inpatient (IN) ==
[2020-02-18] MEDS ORDERED: Ipratropium/Albuterol Neb 3 ML IH PRN (18:21)
[2020-02-18] MEDS ORDERED: Dextrose Gel 15 GM/37.5 ML TUBE PO PRN ×2 (18:21)
[2020-02-18] MEDS ORDERED: Apixaban 5 MG TABLET PO SCH (21:00)
[2020-02-18] MEDS: Gabapentin 400 MG CAPSULE PO SCH (21:33)
[2020-02-18] MEDS: *HR* OxyCODONE/APAP 10/325 TABLET PO PRN (21:34)
[2020-02-18] MEDS: Mirtazapine 15 MG TABLET PO SCH (21:34)
[2020-02-19] MEDS: Baclofen 10 MG TABLET PO PRN ×3 (00:55→20:44)
[2020-02-19] MEDS: Acetaminophen 325 MG TABLET PO PRN ×2 (00:55→14:07)
[2020-02-19] MEDS ORDERED: GlipiZIDE 5 MG TABLET PO SCH (07:30)
[2020-02-19] MEDS ORDERED: Insulin NPH/REG 70/30 100 UNIT/ML (x5UNIT) SQ SCH ×2 (09:00→18:00)
[2020-02-19] MEDS: Furosemide 20 MG TABLET PO SCH (09:17)
[2020-02-19] MEDS: Cyanocobalamin (B-12) 1,000 MCG TABLET PO SCH (09:17)
[2020-02-19] MEDS: Aspirin Enteric Coated 81 MG Tablet PO SCH (09:17)
[2020-02-19] MEDS: *HR* Metformin 500 MG TABLET PO SCH ×2 (09:17→18:15)
[2020-02-19] MEDS: Nitrofurantoin (BID) 100 MG CAPSULE PO SCH ×2 (09:17→18:14)
[2020-02-19] MEDS: Gabapentin 400 MG CAPSULE PO SCH ×4 (09:17→20:44)
[2020-02-19] MEDS: PARoxetine 20 MG TABLET PO SCH (09:18)
[2020-02-19] MEDS: lisinopriL 20 MG TABLET PO SCH (09:18)
[2020-02-19] MEDS: *HR* OxyCODONE/APAP 10/325 TABLET PO PRN ×2 (09:18→18:14)
[2020-02-19] MEDS: amLODIPine 5 MG TABLET PO SCH (09:18)
[2020-02-19] MEDS: Insulin NPH/REG 70/30 100 UNIT/ML (x5UNIT) SQ SCH (20:43)
[2020-02-19] MEDS: Mirtazapine 15 MG TABLET PO SCH (20:44)
[2020-02-20 07:32] LABS: Hematocrit 31.4 % (37.5-50.1); Hemoglobin 9.9 g/dL (12.9-16.9); Mean Corpuscular HGB Conc 31.5 g/dL (31.6-35.5); Mean Corpuscular Hemoglobin 28.2 pg (28.0-33.3); Mean Corpuscular Volume 89.5 fL (83.0-100.0); Mean Platelet Volume 9.3 fL (9.4-12.4); Platelet Count 281 K/mcL (140-400); Red Blood Count 3.51 M/mcL (4.19-5.50); Red Cell Distribution Width 15.4 % (11.5-14.5); White Blood Count 5.3 K/mcL (4.3-11.1)
[2020-02-20 07:51] LABS: BUN/Creatinine Ratio 22 (6-26); Blood Urea Nitrogen 19 mg/dL (8-23); Calcium 8.4 mg/dL (8.6-10.3); Carbon Dioxide 30 mEq/L (23-29); Chloride 100 mEq/L (98-107); Glucose 99 mg/dL (70-105); Magnesium 1.2 mg/dL (1.6-2.6); Osmolality,Calculated 286 (280-300); Potassium 4.2 mEq/L (3.5-5.1); Sodium 137 mEq/L (136-145); eGFR For African Americans > 60 (> 60); eGFR For Non-African Americans > 60 (> 60)
[2020-02-20] MEDS: *HR* OxyCODONE/APAP 10/325 TABLET PO PRN ×2 (08:10→16:39)
[2020-02-20] MEDS: Furosemide 20 MG TABLET PO SCH (08:10)
[2020-02-20] MEDS: *HR* Metformin 500 MG TABLET PO SCH ×2 (08:10→16:39)
[2020-02-20] MEDS: Nitrofurantoin (BID) 100 MG CAPSULE PO SCH ×2 (08:10→16:39)
[2020-02-20] MEDS: Gabapentin 400 MG CAPSULE PO SCH ×4 (08:10→21:38)
[2020-02-20] MEDS: Aspirin Enteric Coated 81 MG Tablet PO SCH (08:10)
[2020-02-20] MEDS: amLODIPine 5 MG TABLET PO SCH (08:10)
[2020-02-20] MEDS: lisinopriL 20 MG TABLET PO SCH (08:10)
[2020-02-20] MEDS: Cyanocobalamin (B-12) 1,000 MCG TABLET PO SCH (08:10)
[2020-02-20] MEDS: PARoxetine 20 MG TABLET PO SCH (08:52)
[2020-02-20] MEDS: Insulin NPH/REG 70/30 100 UNIT/ML (x5UNIT) SQ SCH ×2 (08:53→17:57)
[2020-02-20] MEDS: Baclofen 10 MG TABLET PO PRN (21:37)
[2020-02-20] MEDS: Mirtazapine 15 MG TABLET PO SCH (21:37)
[2020-02-20] MEDS: Acetaminophen 325 MG TABLET PO PRN (21:37)
[2020-02-21] MEDS: *HR* OxyCODONE/APAP 10/325 TABLET PO PRN ×3 (00:45→17:02)
[2020-02-21] MEDS: Cyanocobalamin (B-12) 1,000 MCG TABLET PO SCH (07:54)
[2020-02-21] MEDS: lisinopriL 20 MG TABLET PO SCH (07:54)
[2020-02-21] MEDS: Nitrofurantoin (BID) 100 MG CAPSULE PO SCH ×2 (07:54→16:45)
[2020-02-21] MEDS: Furosemide 20 MG TABLET PO SCH (07:54)
[2020-02-21] MEDS: *HR* Metformin 500 MG TABLET PO SCH ×2 (07:54→16:46)
[2020-02-21] MEDS: amLODIPine 5 MG TABLET PO SCH (07:54)
[2020-02-21] MEDS: PARoxetine 20 MG TABLET PO SCH (07:55)
[2020-02-21] MEDS: Aspirin Enteric Coated 81 MG Tablet PO SCH (07:55)
[2020-02-21] MEDS: Baclofen 10 MG TABLET PO PRN ×3 (07:55→21:18)
[2020-02-21] MEDS: Gabapentin 400 MG CAPSULE PO SCH ×4 (07:55→21:18)
[2020-02-21] MEDS: Insulin NPH/REG 70/30 100 UNIT/ML (x5UNIT) SQ SCH ×2 (09:02→16:46)
[2020-02-21] MEDS: Acetaminophen 325 MG TABLET PO PRN (21:17)
[2020-02-21] MEDS: Mirtazapine 15 MG TABLET PO SCH (21:18)
[2020-02-22] MEDS: *HR* OxyCODONE/APAP 10/325 TABLET PO PRN ×3 (03:24→20:01)
[2020-02-22] MEDS: Aspirin Enteric Coated 81 MG Tablet PO SCH (08:42)
[2020-02-22] MEDS: Gabapentin 400 MG CAPSULE PO SCH ×4 (08:42→20:01)
[2020-02-22] MEDS: PARoxetine 20 MG TABLET PO SCH (08:42)
[2020-02-22] MEDS: *HR* Metformin 500 MG TABLET PO SCH ×2 (08:42→16:07)
[2020-02-22] MEDS: Baclofen 10 MG TABLET PO PRN ×2 (08:42→14:42)
[2020-02-22] MEDS: amLODIPine 5 MG TABLET PO SCH (08:42)
[2020-02-22] MEDS: Nitrofurantoin (BID) 100 MG CAPSULE PO SCH ×2 (08:42→16:07)
[2020-02-22] MEDS: lisinopriL 20 MG TABLET PO SCH (08:42)
[2020-02-22] MEDS: Furosemide 20 MG TABLET PO SCH (08:42)
[2020-02-22] MEDS: Cyanocobalamin (B-12) 1,000 MCG TABLET PO SCH (08:42)
[2020-02-22] MEDS: Insulin NPH/REG 70/30 100 UNIT/ML (x5UNIT) SQ SCH ×2 (08:43→16:12)
[2020-02-22] MEDS: Acetaminophen 325 MG TABLET PO PRN (14:42)
[2020-02-22] MEDS ORDERED: *HR* OxyCODONE/APAP 5/325 TABLET PO ONE (15:34)
[2020-02-22] MEDS: Methyl Salicylate/Menthol 57 APPL/57 GM TUBE TP PRN (16:20)
[2020-02-22] MEDS: Mirtazapine 15 MG TABLET PO SCH (20:01)
[2020-02-22] MEDS ORDERED: Insulin NPH/REG 70/30 100 UNIT/ML (x5UNIT) SQ SCH (21:00)
[2020-02-22] MEDS ORDERED: Insulin NPH/REG 70/30 300 UNIT/3 ML per UNIT SQ ONE (21:00)
[2020-02-23] MEDS: *HR* OxyCODONE/APAP 10/325 TABLET PO PRN ×3 (05:05→22:10)
[2020-02-23] MEDS: amLODIPine 5 MG TABLET PO SCH (09:05)
[2020-02-23] MEDS: Furosemide 20 MG TABLET PO SCH (09:05)
[2020-02-23] MEDS: *HR* Metformin 500 MG TABLET PO SCH ×2 (09:05→16:45)
[2020-02-23] MEDS: lisinopriL 20 MG TABLET PO SCH (09:05)
[2020-02-23] MEDS: Insulin NPH/REG 70/30 100 UNIT/ML (x5UNIT) SQ SCH ×2 (09:05→22:10)
[2020-02-23] MEDS: Gabapentin 400 MG CAPSULE PO SCH ×4 (09:05→22:10)
[2020-02-23] MEDS: Cyanocobalamin (B-12) 1,000 MCG TABLET PO SCH (09:05)
[2020-02-23] MEDS: Aspirin Enteric Coated 81 MG Tablet PO SCH (09:05)
[2020-02-23] MEDS: Nitrofurantoin (BID) 100 MG CAPSULE PO SCH ×2 (09:05→16:45)
[2020-02-23] MEDS: PARoxetine 20 MG TABLET PO SCH (09:05)
[2020-02-23] MEDS: Methyl Salicylate/Menthol 57 APPL/57 GM TUBE TP PRN (13:07)
[2020-02-23] MEDS: Mirtazapine 15 MG TABLET PO SCH (22:10)
[2020-02-24] MEDS: *HR* OxyCODONE/APAP 10/325 TABLET PO PRN ×3 (06:37→22:10)
[2020-02-24] MEDS: Nitrofurantoin (BID) 100 MG CAPSULE PO SCH ×2 (08:30→17:25)
[2020-02-24] MEDS: PARoxetine 20 MG TABLET PO SCH (08:30)
[2020-02-24] MEDS: Gabapentin 400 MG CAPSULE PO SCH ×4 (08:30→20:34)
[2020-02-24] MEDS: Cyanocobalamin (B-12) 1,000 MCG TABLET PO SCH (08:31)
[2020-02-24] MEDS: *HR* Metformin 500 MG TABLET PO SCH ×2 (08:31→17:25)
[2020-02-24] MEDS: Aspirin Enteric Coated 81 MG Tablet PO SCH (08:31)
[2020-02-24] MEDS: Furosemide 20 MG TABLET PO SCH (08:31)
[2020-02-24] MEDS: lisinopriL 20 MG TABLET PO SCH (08:31)
[2020-02-24] MEDS: amLODIPine 5 MG TABLET PO SCH (08:31)
[2020-02-24] MEDS: Insulin NPH/REG 70/30 100 UNIT/ML (x5UNIT) SQ SCH ×2 (08:32→20:35)
[2020-02-24] MEDS: Baclofen 10 MG TABLET PO PRN (20:34)
[2020-02-24] MEDS: Mirtazapine 15 MG TABLET PO SCH (20:35)
[2020-02-25] MEDS: *HR* OxyCODONE/APAP 10/325 TABLET PO PRN ×3 (06:07→22:25)
[2020-02-25] MEDS: Methyl Salicylate/Menthol 57 APPL/57 GM TUBE TP PRN ×2 (06:08→20:39)
[2020-02-25 06:12] LABS: Basophils # 0.1 K/mcL (0.0-0.2); Eosinophils # 0.3 K/mcL (0.0-0.6); Eosinophils % 6.5 %; Hematocrit 31.9 % (37.5-50.1); Immature Granulocytes % 0.2 % (0-4); Lymphocytes # 1.4 K/mcL (0.6-4.6); Lymphocytes % 27.4 %; Mean Corpuscular HGB Conc 31.3 g/dL (31.6-35.5); Mean Corpuscular Hemoglobin 27.9 pg (28.0-33.3); Mean Corpuscular Volume 89.1 fL (83.0-100.0); Mean Platelet Volume 9.1 fL (9.4-12.4); Monocytes # 0.5 K/mcL (0.0-1.3); Monocytes % 10.8 %; Neutrophils # 2.7 K/mcL (1.6-8.9); Platelet Count 282 K/mcL (140-400); Red Blood Count 3.58 M/mcL (4.19-5.50); Red Cell Distribution Width 14.9 % (11.5-14.5); Segmented Neutrophils % 54.1 %; White Blood Count 4.9 K/mcL (4.3-11.1)
[2020-02-25 06:31] LABS: BUN/Creatinine Ratio 22 (6-26); Blood Urea Nitrogen 20 mg/dL (8-23); Calcium 8.6 mg/dL (8.6-10.3); Carbon Dioxide 28 mEq/L (23-29); Chloride 102 mEq/L (98-107); Glucose 90 mg/dL (70-105); Osmolality,Calculated 286 (280-300); Potassium 4.7 mEq/L (3.5-5.1); Sodium 137 mEq/L (136-145); eGFR For African Americans > 60 (> 60); eGFR For Non-African Americans > 60 (> 60)
[2020-02-25] MEDS: Insulin NPH/REG 70/30 100 UNIT/ML (x5UNIT) SQ SCH ×2 (08:01→20:38)
[2020-02-25] MEDS: lisinopriL 20 MG TABLET PO SCH (08:02)
[2020-02-25] MEDS: Cyanocobalamin (B-12) 1,000 MCG TABLET PO SCH (08:02)
[2020-02-25] MEDS: Furosemide 20 MG TABLET PO SCH (08:02)
[2020-02-25] MEDS: Aspirin Enteric Coated 81 MG Tablet PO SCH (08:02)
[2020-02-25] MEDS: PARoxetine 20 MG TABLET PO SCH (08:02)
[2020-02-25] MEDS: *HR* Metformin 500 MG TABLET PO SCH ×2 (08:02→16:53)
[2020-02-25] MEDS: amLODIPine 5 MG TABLET PO SCH (08:02)
[2020-02-25] MEDS: Gabapentin 400 MG CAPSULE PO SCH ×4 (08:02→20:36)
[2020-02-25] MEDS: Nitrofurantoin (BID) 100 MG CAPSULE PO SCH ×2 (08:09→16:52)
[2020-02-25] MEDS: Magnesium Oxide 400 MG TABLET PO SCH ×2 (09:12→20:36)
[2020-02-25] MEDS: Mirtazapine 15 MG TABLET PO SCH (20:36)
[2020-02-25] MEDS: Baclofen 10 MG TABLET PO PRN (20:36)
[2020-02-26] MEDS: *HR* OxyCODONE/APAP 10/325 TABLET PO PRN ×2 (06:52→15:02)
[2020-02-26] MEDS: amLODIPine 5 MG TABLET PO SCH (08:55)
[2020-02-26] MEDS: lisinopriL 20 MG TABLET PO SCH (08:55)
[2020-02-26] MEDS: Magnesium Oxide 400 MG TABLET PO SCH ×2 (08:55→20:05)
[2020-02-26] MEDS: Cyanocobalamin (B-12) 1,000 MCG TABLET PO SCH (08:55)
[2020-02-26] MEDS: *HR* Metformin 500 MG TABLET PO SCH ×2 (08:55→17:32)
[2020-02-26] MEDS: Furosemide 20 MG TABLET PO SCH (08:55)
[2020-02-26] MEDS: Aspirin Enteric Coated 81 MG Tablet PO SCH (08:55)
[2020-02-26] MEDS: Nitrofurantoin (BID) 100 MG CAPSULE PO SCH ×2 (08:55→17:32)
[2020-02-26] MEDS: Gabapentin 400 MG CAPSULE PO SCH ×4 (08:55→20:05)
[2020-02-26] MEDS: PARoxetine 20 MG TABLET PO SCH (08:55)
[2020-02-26] MEDS: Insulin NPH/REG 70/30 100 UNIT/ML (x5UNIT) SQ SCH ×2 (08:56→20:05)
[2020-02-26] MEDS: Baclofen 10 MG TABLET PO PRN (17:33)
[2020-02-26] MEDS: Methyl Salicylate/Menthol 57 APPL/57 GM TUBE TP PRN (17:33)
[2020-02-26] MEDS: Mirtazapine 15 MG TABLET PO SCH (20:05)
[2020-02-26] MEDS: Acetaminophen 325 MG TABLET PO PRN (20:09)
[2020-02-27] MEDS: *HR* OxyCODONE/APAP 10/325 TABLET PO PRN ×3 (01:46→17:29)
[2020-02-27] MEDS: Magnesium Oxide 400 MG TABLET PO SCH ×2 (09:16→22:09)
[2020-02-27] MEDS: Gabapentin 400 MG CAPSULE PO SCH ×4 (09:16→22:10)
[2020-02-27] MEDS: Furosemide 20 MG TABLET PO SCH (09:16)
[2020-02-27] MEDS: Aspirin Enteric Coated 81 MG Tablet PO SCH (09:16)
[2020-02-27] MEDS: lisinopriL 20 MG TABLET PO SCH (09:16)
[2020-02-27] MEDS: amLODIPine 5 MG TABLET PO SCH (09:16)
[2020-02-27] MEDS: *HR* Metformin 500 MG TABLET PO SCH ×2 (09:16→16:22)
[2020-02-27] MEDS: PARoxetine 20 MG TABLET PO SCH (09:16)
[2020-02-27] MEDS: Nitrofurantoin (BID) 100 MG CAPSULE PO SCH ×2 (09:17→16:22)
[2020-02-27] MEDS: Cyanocobalamin (B-12) 1,000 MCG TABLET PO SCH (09:17)
[2020-02-27] MEDS: Insulin NPH/REG 70/30 100 UNIT/ML (x5UNIT) SQ SCH ×2 (09:17→22:10)
[2020-02-27] MEDS: Baclofen 10 MG TABLET PO PRN (22:10)
[2020-02-27] MEDS: Mirtazapine 15 MG TABLET PO SCH (22:10)
[2020-02-28] MEDS: *HR* OxyCODONE/APAP 10/325 TABLET PO PRN ×3 (02:49→19:24)
[2020-02-28] MEDS: Magnesium Oxide 400 MG TABLET PO SCH ×2 (09:44→20:13)
[2020-02-28] MEDS: PARoxetine 20 MG TABLET PO SCH (09:44)
[2020-02-28] MEDS: *HR* Metformin 500 MG TABLET PO SCH ×2 (09:44→16:34)
[2020-02-28] MEDS: lisinopriL 20 MG TABLET PO SCH (09:44)
[2020-02-28] MEDS: Gabapentin 400 MG CAPSULE PO SCH ×4 (09:44→20:13)
[2020-02-28] MEDS: Aspirin Enteric Coated 81 MG Tablet PO SCH (09:44)
[2020-02-28] MEDS: Cyanocobalamin (B-12) 1,000 MCG TABLET PO SCH (09:44)
[2020-02-28] MEDS: Furosemide 20 MG TABLET PO SCH (09:44)
[2020-02-28] MEDS: Nitrofurantoin (BID) 100 MG CAPSULE PO SCH ×2 (09:44→16:34)
[2020-02-28] MEDS: amLODIPine 5 MG TABLET PO SCH (09:45)
[2020-02-28] MEDS: Insulin NPH/REG 70/30 100 UNIT/ML (x5UNIT) SQ SCH ×2 (09:45→20:14)
[2020-02-28] MEDS: Methyl Salicylate/Menthol 57 APPL/57 GM TUBE TP PRN (10:58)
[2020-02-28] MEDS: Mirtazapine 15 MG TABLET PO SCH (20:13)
[2020-02-28] MEDS: Baclofen 10 MG TABLET PO PRN (20:13)
[2020-02-29] MEDS: *HR* OxyCODONE/APAP 10/325 TABLET PO PRN ×3 (04:38→20:36)
[2020-02-29 07:22] LABS: Basophils % 0.4 %; Eosinophils # 0.3 K/mcL (0.0-0.6); Eosinophils % 6.2 %; Hematocrit 33.9 % (37.5-50.1); Hemoglobin 10.7 g/dL (12.9-16.9); Immature Granulocytes % 0.2 % (0-4); Lymphocytes # 1.5 K/mcL (0.6-4.6); Lymphocytes % 26.7 %; Mean Corpuscular HGB Conc 31.6 g/dL (31.6-35.5); Mean Corpuscular Hemoglobin 27.8 pg (28.0-33.3); Mean Corpuscular Volume 88.1 fL (83.0-100.0); Mean Platelet Volume 9.5 fL (9.4-12.4); Monocytes # 0.4 K/mcL (0.0-1.3); Monocytes % 7.7 %; Neutrophils # 3.2 K/mcL (1.6-8.9); Platelet Count 282 K/mcL (140-400); Red Blood Count 3.85 M/mcL (4.19-5.50); Red Cell Distribution Width 14.6 % (11.5-14.5); Segmented Neutrophils % 58.8 %; White Blood Count 5.5 K/mcL (4.3-11.1)
[2020-02-29 07:49] LABS: BUN/Creatinine Ratio 24 (6-26); Blood Urea Nitrogen 22 mg/dL (8-23); Calcium 8.9 mg/dL (8.6-10.3); Carbon Dioxide 26 mEq/L (23-29); Chloride 100 mEq/L (98-107); Glucose 99 mg/dL (70-105); Magnesium 1.6 mg/dL (1.6-2.6); Osmolality,Calculated 281 (280-300); Sodium 134 mEq/L (136-145); eGFR For African Americans > 60 (> 60); eGFR For Non-African Americans > 60 (> 60)
[2020-02-29] MEDS: amLODIPine 5 MG TABLET PO SCH (09:37)
[2020-02-29] MEDS: Cyanocobalamin (B-12) 1,000 MCG TABLET PO SCH (09:37)
[2020-02-29] MEDS: PARoxetine 20 MG TABLET PO SCH (09:37)
[2020-02-29] MEDS: Gabapentin 400 MG CAPSULE PO SCH ×4 (09:37→19:55)
[2020-02-29] MEDS: Magnesium Oxide 400 MG TABLET PO SCH ×2 (09:37→19:56)
[2020-02-29] MEDS: lisinopriL 20 MG TABLET PO SCH (09:37)
[2020-02-29] MEDS: Furosemide 20 MG TABLET PO SCH (09:37)
[2020-02-29] MEDS: Nitrofurantoin (BID) 100 MG CAPSULE PO SCH ×2 (09:37→16:25)
[2020-02-29] MEDS: Aspirin Enteric Coated 81 MG Tablet PO SCH (09:37)
[2020-02-29] MEDS: *HR* Metformin 500 MG TABLET PO SCH ×2 (09:37→16:25)
[2020-02-29] MEDS: Insulin NPH/REG 70/30 100 UNIT/ML (x5UNIT) SQ SCH ×2 (09:40→19:57)
[2020-02-29] MEDS: Mirtazapine 15 MG TABLET PO SCH (19:56)
[2020-03-01] MEDS: *HR* OxyCODONE/APAP 10/325 TABLET PO PRN (05:09)
[2020-03-01 06:50] VITALS: BP 131/74
[2020-03-01] MEDS: amLODIPine 5 MG TABLET PO SCH (08:54)
[2020-03-01] MEDS: *HR* Metformin 500 MG TABLET PO SCH (08:55)
[2020-03-01] MEDS: Nitrofurantoin (BID) 100 MG CAPSULE PO SCH (08:55)
[2020-03-01] MEDS: Furosemide 20 MG TABLET PO SCH (08:55)
[2020-03-01] MEDS: Gabapentin 400 MG CAPSULE PO SCH (08:56)
[2020-03-01] MEDS: PARoxetine 20 MG TABLET PO SCH (08:56)
[2020-03-01] MEDS: Magnesium Oxide 400 MG TABLET PO SCH (08:56)
[2020-03-01] MEDS: Cyanocobalamin (B-12) 1,000 MCG TABLET PO SCH (08:56)
[2020-03-01] MEDS: lisinopriL 20 MG TABLET PO SCH (08:56)
[2020-03-01] MEDS: Aspirin Enteric Coated 81 MG Tablet PO SCH (08:56)
[2020-03-01] MEDS: Insulin NPH/REG 70/30 100 UNIT/ML (x5UNIT) SQ SCH (09:04)
== END 2020-03-01 12:23 | disposition home health service (06) | DRG 560 ==
LOC: INPPIK 20:17
PROVIDERS: ADMIT Family Medicine; ATTEND Family Medicine

== ENCOUNTER 2021-02-10 16:39 | Inpatient (IN) ==
[2021-02-11] MEDS ORDERED: Dextrose Gel 15 GM/37.5 ML TUBE PO PRN ×2 (19:35)
[2021-02-11] MEDS ORDERED: D5% in Water 1,000 ML IVC PRN (19:35)
[2021-02-11] MEDS ORDERED: *HR* Dextrose 50 % in Water (Vial) 50 ML VIAL IVP PRN (19:35)
[2021-02-12] MEDS: Insulin LISPRO 300 UNITS/3 ML VIAL SUBQ SCH ×5 (02:07→19:33)
[2021-02-12] MEDS: QUEtiapine Fumarate 25 MG TABLET PO SCH ×3 (02:07→19:59)
[2021-02-12] MEDS: Mirtazapine 15 MG TABLET PO SCH ×2 (02:08→19:59)
[2021-02-12] MEDS: Insulin NPH/REG 70/30 300 UNIT/3 ML per UNIT SUBQ SCH ×2 (02:08→12:56)
[2021-02-12 07:44] LABS: Basophils % 0.6 %; Eosinophils # 0.3 K/mcL (0.0-0.6); Eosinophils % 5.8 %; Hematocrit 37.9 % (37.5-50.1); Hemoglobin 12.5 g/dL (12.9-16.9); Immature Granulocytes % 0.6 % (0-4); Lymphocytes # 0.9 K/mcL (0.6-4.6); Lymphocytes % 17.4 %; Mean Corpuscular Hemoglobin 29.4 pg (28.0-33.3); Mean Corpuscular Volume 89.2 fL (83.0-100.0); Mean Platelet Volume 9.5 fL (9.4-12.4); Monocytes # 0.5 K/mcL (0.0-1.3); Monocytes % 10.6 %; Neutrophils # 3.3 K/mcL (1.6-8.9); Platelet Count 220 K/mcL (140-400); Red Blood Count 4.25 M/mcL (4.19-5.50); Red Cell Distribution Width 13.8 % (11.5-14.5)
[2021-02-12 08:00] LABS: BUN/Creatinine Ratio 20 (6-26); Blood Urea Nitrogen 20 mg/dL (8-23); Calcium 8.1 mg/dL (8.6-10.3); Carbon Dioxide 29 mEq/L (23-29); Chloride 98 mEq/L (98-107); Glucose 333 mg/dL (70-105); Osmolality,Calculated 292 (280-300); Potassium 4.2 mEq/L (3.5-5.1); Sodium 133 mEq/L (136-145); eGFR For African Americans > 60 (> 60); eGFR For Non-African Americans > 60 (> 60)
[2021-02-12] MEDS: Ascorbic Acid 500 MG TABLET PO SCH (08:03)
[2021-02-12] MEDS: Cyanocobalamin (B-12) 1,000 MCG TABLET PO SCH (08:03)
[2021-02-12] MEDS: Gabapentin 400 MG CAPSULE PO SCH ×4 (08:03→19:59)
[2021-02-12] MEDS: PARoxetine 20 MG TABLET PO SCH (08:03)
[2021-02-12] MEDS: *HR* Metformin 500 MG TABLET PO SCH ×2 (08:03→19:59)
[2021-02-12] MEDS: Fluconazole 100 MG TABLET PO SCH (08:03)
[2021-02-12] MEDS: Aspirin Enteric Coated 81 MG Tablet PO SCH (08:03)
[2021-02-12] MEDS: lisinopriL 20 MG TABLET PO SCH (08:04)
[2021-02-12] MEDS: Furosemide 20 MG TABLET PO SCH (08:04)
[2021-02-12] MEDS: amLODIPine 5 MG TABLET PO SCH (08:04)
[2021-02-12] MEDS: (Linagliptin [Tradjenta] 5 MG Tablet) PO SCH (08:04)
[2021-02-12] MEDS: Baclofen 10 MG TABLET PO PRN (08:11)
[2021-02-12] MEDS ORDERED: Insulin NPH/REG 70/30 300 UNIT/3 ML per UNIT SUBQ SCH (11:45)
[2021-02-12] MEDS: Insulin NPH/REG 70/30 100 UNIT/ML (x5UNIT) SUBQ SCH ×2 (12:38→19:33)
[2021-02-13] MEDS: amLODIPine 5 MG TABLET PO SCH (08:32)
[2021-02-13] MEDS: Aspirin Enteric Coated 81 MG Tablet PO SCH (08:32)
[2021-02-13] MEDS: Baclofen 10 MG TABLET PO PRN ×3 (08:32→20:46)
[2021-02-13] MEDS: lisinopriL 20 MG TABLET PO SCH (08:32)
[2021-02-13] MEDS: *HR* Metformin 500 MG TABLET PO SCH ×2 (08:32→20:46)
[2021-02-13] MEDS: Ascorbic Acid 500 MG TABLET PO SCH (08:32)
[2021-02-13] MEDS: Fluconazole 100 MG TABLET PO SCH (08:32)
[2021-02-13] MEDS: Cyanocobalamin (B-12) 1,000 MCG TABLET PO SCH (08:33)
[2021-02-13] MEDS: Gabapentin 400 MG CAPSULE PO SCH ×4 (08:33→20:47)
[2021-02-13] MEDS: PARoxetine 20 MG TABLET PO SCH (08:33)
[2021-02-13] MEDS: Furosemide 20 MG TABLET PO SCH (08:33)
[2021-02-13] MEDS: QUEtiapine Fumarate 25 MG TABLET PO SCH ×2 (08:33→20:46)
[2021-02-13] MEDS: Insulin LISPRO 300 UNITS/3 ML VIAL SUBQ SCH ×4 (08:34→20:47)
[2021-02-13] MEDS: (Linagliptin [Tradjenta] 5 MG Tablet) PO SCH (08:36)
[2021-02-13] MEDS: Insulin NPH/REG 70/30 100 UNIT/ML (x5UNIT) SUBQ SCH ×2 (08:45→20:47)
[2021-02-13] MEDS: Acetaminophen 325 MG TABLET PO PRN (16:38)
[2021-02-13] MEDS: Mirtazapine 15 MG TABLET PO SCH (20:47)
[2021-02-14] MEDS: Gabapentin 400 MG CAPSULE PO SCH ×4 (09:30→21:22)
[2021-02-14] MEDS: amLODIPine 5 MG TABLET PO SCH (09:30)
[2021-02-14] MEDS: Fluconazole 100 MG TABLET PO SCH (09:30)
[2021-02-14] MEDS: lisinopriL 20 MG TABLET PO SCH (09:30)
[2021-02-14] MEDS: Furosemide 20 MG TABLET PO SCH (09:30)
[2021-02-14] MEDS: *HR* Metformin 500 MG TABLET PO SCH ×2 (09:30→21:23)
[2021-02-14] MEDS: Aspirin Enteric Coated 81 MG Tablet PO SCH (09:30)
[2021-02-14] MEDS: Ascorbic Acid 500 MG TABLET PO SCH (09:30)
[2021-02-14] MEDS: PARoxetine 20 MG TABLET PO SCH (09:30)
[2021-02-14] MEDS: QUEtiapine Fumarate 25 MG TABLET PO SCH ×2 (09:31→21:21)
[2021-02-14] MEDS: Cyanocobalamin (B-12) 1,000 MCG TABLET PO SCH (09:31)
[2021-02-14] MEDS: Insulin LISPRO 300 UNITS/3 ML VIAL SUBQ SCH ×4 (09:31→21:18)
[2021-02-14] MEDS: Baclofen 10 MG TABLET PO PRN ×2 (09:31→16:50)
[2021-02-14] MEDS: Insulin NPH/REG 70/30 100 UNIT/ML (x5UNIT) SUBQ SCH ×2 (09:31→21:20)
[2021-02-14] MEDS: (Linagliptin [Tradjenta] 5 MG Tablet) PO SCH (09:43)
[2021-02-14] MEDS: Acetaminophen 325 MG TABLET PO PRN ×2 (12:39→21:23)
[2021-02-14] MEDS ORDERED: Ondansetron ODT 4 MG TAB.RAPDIS SL PRN (16:29)
[2021-02-14] MEDS: Mirtazapine 15 MG TABLET PO SCH (21:21)
[2021-02-15 05:10] LABS: Basophils % 0.6 %; Eosinophils # 0.4 K/mcL (0.0-0.6); Eosinophils % 6.5 %; Hematocrit 38.4 % (37.5-50.1); Hemoglobin 12.3 g/dL (12.9-16.9); Immature Granulocytes % 0.4 % (0-4); Lymphocytes # 1.5 K/mcL (0.6-4.6); Lymphocytes % 21.8 %; Mean Corpuscular Hemoglobin 29.1 pg (28.0-33.3); Mean Corpuscular Volume 90.8 fL (83.0-100.0); Mean Platelet Volume 9.8 fL (9.4-12.4); Monocytes # 0.5 K/mcL (0.0-1.3); Neutrophils # 4.3 K/mcL (1.6-8.9); Platelet Count 255 K/mcL (140-400); Red Blood Count 4.23 M/mcL (4.19-5.50); Red Cell Distribution Width 14.1 % (11.5-14.5); Segmented Neutrophils % 62.7 %; White Blood Count 6.8 K/mcL (4.3-11.1)
[2021-02-15 05:39] LABS: Alanine Aminotransferase 33 Units/L (7-52); Albumin 3.1 g/dL (3.5-5.7); Albumin/Globulin Ratio 1.1 (1.1-2.2); Alkaline Phosphatase 77 Units/L (34-104); Aspartate Amino Transferase 20 Units/L (13-39); BUN/Creatinine Ratio 18 (6-26); Bilirubin,Total 0.3 mg/dL (0.3-1.0); Blood Urea Nitrogen 20 mg/dL (8-23); Calcium 7.9 mg/dL (8.6-10.3); Carbon Dioxide 26 mEq/L (23-29); Chloride 101 mEq/L (98-107); Globulin 2.8 g/dL (2.4-3.5); Glucose 158 mg/dL (70-105); Osmolality,Calculated 286 (280-300); Potassium 4.5 mEq/L (3.5-5.1); Sodium 135 mEq/L (136-145); Total Protein 5.9 g/dL (6.4-8.9); eGFR For African Americans > 60 (> 60); eGFR For Non-African Americans > 60 (> 60)
[2021-02-15] MEDS: Ascorbic Acid 500 MG TABLET PO SCH (09:58)
[2021-02-15] MEDS: QUEtiapine Fumarate 25 MG TABLET PO SCH ×2 (09:59→22:01)
[2021-02-15] MEDS: Gabapentin 400 MG CAPSULE PO SCH ×4 (09:59→22:02)
[2021-02-15] MEDS: *HR* Metformin 500 MG TABLET PO SCH ×2 (09:59→22:01)
[2021-02-15] MEDS: Cyanocobalamin (B-12) 1,000 MCG TABLET PO SCH (10:00)
[2021-02-15] MEDS: amLODIPine 5 MG TABLET PO SCH (10:01)
[2021-02-15] MEDS: Aspirin Enteric Coated 81 MG Tablet PO SCH (10:01)
[2021-02-15] MEDS: lisinopriL 20 MG TABLET PO SCH (10:01)
[2021-02-15] MEDS: PARoxetine 20 MG TABLET PO SCH (10:02)
[2021-02-15] MEDS: Fluconazole 100 MG TABLET PO SCH (10:02)
[2021-02-15] MEDS: Furosemide 20 MG TABLET PO SCH (10:03)
[2021-02-15] MEDS: Insulin LISPRO 300 UNITS/3 ML VIAL SUBQ SCH ×4 (10:05→22:02)
[2021-02-15] MEDS: (Linagliptin [Tradjenta] 5 MG Tablet) PO SCH (10:36)
[2021-02-15] MEDS: *HR* HYDROcodone/Acet 5/325 mg TABLET PO PRN ×2 (10:40→17:46)
[2021-02-15] MEDS ORDERED: Insulin NPH/REG 70/30 100 UNIT/ML (x5UNIT) SUBQ ONE (12:00)
[2021-02-15] MEDS: Acetaminophen 325 MG TABLET PO PRN (15:33)
[2021-02-15] MEDS ORDERED: Insulin NPH/REG 70/30 100 UNIT/ML (x5UNIT) SUBQ SCH (21:00)
[2021-02-15] MEDS: Mirtazapine 15 MG TABLET PO SCH (22:01)
[2021-02-15] MEDS: Insulin NPH/REG 70/30 100 UNIT/ML (x5UNIT) SUBQ SCH (22:01)
[2021-02-16] MEDS: Aspirin Enteric Coated 81 MG Tablet PO SCH (08:00)
[2021-02-16] MEDS: PARoxetine 20 MG TABLET PO SCH (08:01)
[2021-02-16] MEDS: lisinopriL 20 MG TABLET PO SCH (08:01)
[2021-02-16] MEDS: Gabapentin 400 MG CAPSULE PO SCH ×4 (08:01→21:21)
[2021-02-16] MEDS: Fluconazole 100 MG TABLET PO SCH (08:01)
[2021-02-16] MEDS: Furosemide 20 MG TABLET PO SCH (08:01)
[2021-02-16] MEDS: Ascorbic Acid 500 MG TABLET PO SCH (08:01)
[2021-02-16] MEDS: Cyanocobalamin (B-12) 1,000 MCG TABLET PO SCH (08:02)
[2021-02-16] MEDS: *HR* Metformin 500 MG TABLET PO SCH ×2 (08:02→21:22)
[2021-02-16] MEDS: amLODIPine 5 MG TABLET PO SCH (08:03)
[2021-02-16] MEDS: *HR* HYDROcodone/Acet 5/325 mg TABLET PO PRN ×3 (08:07→21:22)
[2021-02-16] MEDS: QUEtiapine Fumarate 25 MG TABLET PO SCH ×2 (08:08→21:21)
[2021-02-16] MEDS: Insulin NPH/REG 70/30 100 UNIT/ML (x5UNIT) SUBQ SCH ×3 (08:09→21:17)
[2021-02-16] MEDS: Insulin LISPRO 300 UNITS/3 ML VIAL SUBQ SCH ×4 (08:10→21:22)
[2021-02-16] MEDS: (Linagliptin [Tradjenta] 5 MG Tablet) PO SCH (08:12)
[2021-02-16] MEDS ORDERED: Insulin NPH/REG 70/30 100 UNIT/ML (x5UNIT) SUBQ SCH (21:00)
[2021-02-16] MEDS: Mirtazapine 15 MG TABLET PO SCH (21:21)
[2021-02-16] MEDS: Baclofen 10 MG TABLET PO PRN (21:22)
[2021-02-17 09:00] LABS: Alanine Aminotransferase 25 Units/L (7-52); Albumin 3.4 g/dL (3.5-5.7); Albumin/Globulin Ratio 1.1 (1.1-2.2); Alkaline Phosphatase 77 Units/L (34-104); Aspartate Amino Transferase 16 Units/L (13-39); BUN/Creatinine Ratio 20 (6-26); Bilirubin,Total 0.3 mg/dL (0.3-1.0); Blood Urea Nitrogen 21 mg/dL (8-23); Calcium 8.3 mg/dL (8.6-10.3); Carbon Dioxide 24 mEq/L (23-29); Chloride 102 mEq/L (98-107); Globulin 3.1 g/dL (2.4-3.5); Glucose 83 mg/dL (70-105); Osmolality,Calculated 280 (280-300); Potassium 4.9 mEq/L (3.5-5.1); Sodium 134 mEq/L (136-145); Total Protein 6.5 g/dL (6.4-8.9); eGFR For African Americans > 60 (> 60); eGFR For Non-African Americans > 60 (> 60)
[2021-02-17] MEDS: Cyanocobalamin (B-12) 1,000 MCG TABLET PO SCH (09:02)
[2021-02-17] MEDS: *HR* Metformin 500 MG TABLET PO SCH ×2 (09:02→20:47)
[2021-02-17] MEDS: Ascorbic Acid 500 MG TABLET PO SCH (09:02)
[2021-02-17] MEDS: amLODIPine 5 MG TABLET PO SCH (09:03)
[2021-02-17] MEDS: *HR* HYDROcodone/Acet 5/325 mg TABLET PO PRN ×3 (09:03→20:47)
[2021-02-17] MEDS: Aspirin Enteric Coated 81 MG Tablet PO SCH (09:03)
[2021-02-17] MEDS: Fluconazole 100 MG TABLET PO SCH (09:03)
[2021-02-17] MEDS: Gabapentin 400 MG CAPSULE PO SCH ×4 (09:03→20:48)
[2021-02-17] MEDS: Furosemide 20 MG TABLET PO SCH (09:03)
[2021-02-17] MEDS: Insulin NPH/REG 70/30 100 UNIT/ML (x5UNIT) SUBQ SCH (09:04)
[2021-02-17] MEDS: lisinopriL 20 MG TABLET PO SCH (09:04)
[2021-02-17] MEDS: QUEtiapine Fumarate 25 MG TABLET PO SCH ×2 (09:04→20:48)
[2021-02-17] MEDS: PARoxetine 20 MG TABLET PO SCH (09:04)
[2021-02-17] MEDS: Insulin LISPRO 300 UNITS/3 ML VIAL SUBQ SCH ×4 (12:37→20:46)
[2021-02-17] MEDS: (Linagliptin [Tradjenta] 5 MG Tablet) PO SCH (12:40)
[2021-02-17] MEDS: Mirtazapine 15 MG TABLET PO SCH (20:48)
[2021-02-17] MEDS ORDERED: Insulin NPH/REG 70/30 300 UNIT/3 ML per UNIT SUBQ ONE (21:00)
[2021-02-18] MEDS: *HR* HYDROcodone/Acet 5/325 mg TABLET PO PRN ×3 (06:18→18:53)
[2021-02-18] MEDS: Insulin LISPRO 300 UNITS/3 ML VIAL SUBQ SCH ×4 (08:08→21:42)
[2021-02-18] MEDS: lisinopriL 20 MG TABLET PO SCH (08:12)
[2021-02-18] MEDS: *HR* Metformin 500 MG TABLET PO SCH ×2 (08:13→21:41)
[2021-02-18] MEDS: Aspirin Enteric Coated 81 MG Tablet PO SCH (08:13)
[2021-02-18] MEDS: PARoxetine 20 MG TABLET PO SCH (08:13)
[2021-02-18] MEDS: Gabapentin 400 MG CAPSULE PO SCH ×4 (08:13→21:41)
[2021-02-18] MEDS: amLODIPine 5 MG TABLET PO SCH (08:13)
[2021-02-18] MEDS: Fluconazole 100 MG TABLET PO SCH (08:13)
[2021-02-18] MEDS: QUEtiapine Fumarate 25 MG TABLET PO SCH ×2 (08:13→21:41)
[2021-02-18] MEDS: Ascorbic Acid 500 MG TABLET PO SCH (08:14)
[2021-02-18] MEDS: Cyanocobalamin (B-12) 1,000 MCG TABLET PO SCH (08:14)
[2021-02-18] MEDS: Furosemide 20 MG TABLET PO SCH (08:14)
[2021-02-18] MEDS: (Linagliptin [Tradjenta] 5 MG Tablet) PO SCH (08:15)
[2021-02-18] MEDS: Insulin NPH/REG 70/30 100 UNIT/ML (x5UNIT) SUBQ SCH (09:53)
[2021-02-18] MEDS ORDERED: Insulin NPH/REG 70/30 100 UNIT/ML (x5UNIT) SUBQ SCH (21:00)
[2021-02-18] MEDS: Baclofen 10 MG TABLET PO PRN (21:41)
[2021-02-18] MEDS: Mirtazapine 15 MG TABLET PO SCH (21:42)
[2021-02-19] MEDS: *HR* HYDROcodone/Acet 5/325 mg TABLET PO PRN ×4 (01:41→22:12)
[2021-02-19] MEDS: Insulin LISPRO 300 UNITS/3 ML VIAL SUBQ SCH ×4 (08:06→21:32)
[2021-02-19] MEDS: Gabapentin 400 MG CAPSULE PO SCH ×4 (08:07→21:31)
[2021-02-19] MEDS: Furosemide 20 MG TABLET PO SCH (08:07)
[2021-02-19] MEDS: Cyanocobalamin (B-12) 1,000 MCG TABLET PO SCH (08:07)
[2021-02-19] MEDS: Fluconazole 100 MG TABLET PO SCH (08:07)
[2021-02-19] MEDS: PARoxetine 20 MG TABLET PO SCH (08:07)
[2021-02-19] MEDS: lisinopriL 20 MG TABLET PO SCH (08:08)
[2021-02-19] MEDS: Aspirin Enteric Coated 81 MG Tablet PO SCH (08:08)
[2021-02-19] MEDS: *HR* Metformin 500 MG TABLET PO SCH ×2 (08:08→21:32)
[2021-02-19] MEDS: Ascorbic Acid 500 MG TABLET PO SCH (08:08)
[2021-02-19] MEDS: QUEtiapine Fumarate 25 MG TABLET PO SCH ×2 (08:08→21:32)
[2021-02-19] MEDS: amLODIPine 5 MG TABLET PO SCH (08:08)
[2021-02-19] MEDS: (Linagliptin [Tradjenta] 5 MG Tablet) PO SCH (08:09)
[2021-02-19] MEDS: Insulin NPH/REG 70/30 100 UNIT/ML (x5UNIT) SUBQ SCH (08:41)
[2021-02-19] MEDS: Mirtazapine 15 MG TABLET PO SCH (21:31)
[2021-02-19] MEDS: Baclofen 10 MG TABLET PO PRN (21:31)
[2021-02-19] MEDS: Sulfamethoxazole/Trimeth DS 1 EACH TABLET PO SCH (22:32)
[2021-02-20] MEDS: *HR* HYDROcodone/Acet 5/325 mg TABLET PO PRN ×3 (06:08→20:32)
[2021-02-20] MEDS: Insulin LISPRO 300 UNITS/3 ML VIAL SUBQ SCH ×4 (08:52→22:08)
[2021-02-20] MEDS: Fluconazole 100 MG TABLET PO SCH (08:57)
[2021-02-20] MEDS: QUEtiapine Fumarate 25 MG TABLET PO SCH ×2 (08:57→20:33)
[2021-02-20] MEDS: amLODIPine 5 MG TABLET PO SCH (08:57)
[2021-02-20] MEDS: Gabapentin 400 MG CAPSULE PO SCH ×4 (08:57→20:32)
[2021-02-20] MEDS: PARoxetine 20 MG TABLET PO SCH (08:57)
[2021-02-20] MEDS: lisinopriL 20 MG TABLET PO SCH (08:57)
[2021-02-20] MEDS: Insulin NPH/REG 70/30 100 UNIT/ML (x5UNIT) SUBQ SCH (08:58)
[2021-02-20] MEDS: Sulfamethoxazole/Trimeth DS 1 EACH TABLET PO SCH (08:58)
[2021-02-20] MEDS: Cyanocobalamin (B-12) 1,000 MCG TABLET PO SCH (08:58)
[2021-02-20] MEDS: *HR* Metformin 500 MG TABLET PO SCH ×2 (08:58→20:32)
[2021-02-20] MEDS: Ascorbic Acid 500 MG TABLET PO SCH (08:58)
[2021-02-20] MEDS: Furosemide 20 MG TABLET PO SCH (08:58)
[2021-02-20] MEDS: Aspirin Enteric Coated 81 MG Tablet PO SCH (08:58)
[2021-02-20] MEDS: (Linagliptin [Tradjenta] 5 MG Tablet) PO SCH (08:59)
[2021-02-20 11:36] LABS: Basophils # 0.1 K/mcL (0.0-0.2); Basophils % 0.6 %; Eosinophils # 0.4 K/mcL (0.0-0.6); Eosinophils % 4.8 %; Hematocrit 39.5 % (37.5-50.1); Hemoglobin 12.9 g/dL (12.9-16.9); Immature Granulocytes % 0.4 % (0-4); Lymphocytes # 1.4 K/mcL (0.6-4.6); Mean Corpuscular HGB Conc 32.7 g/dL (31.6-35.5); Mean Corpuscular Hemoglobin 29.5 pg (28.0-33.3); Mean Corpuscular Volume 90.4 fL (83.0-100.0); Mean Platelet Volume 8.9 fL (9.4-12.4); Monocytes # 0.6 K/mcL (0.0-1.3); Monocytes % 7.7 %; Neutrophils # 5.6 K/mcL (1.6-8.9); Platelet Count 278 K/mcL (140-400); Red Blood Count 4.37 M/mcL (4.19-5.50); Segmented Neutrophils % 69.5 %; White Blood Count 8.1 K/mcL (4.3-11.1)
[2021-02-20 11:52] LABS: Alanine Aminotransferase 18 Units/L (7-52); Albumin 3.6 g/dL (3.5-5.7); Albumin/Globulin Ratio 1.1 (1.1-2.2); Alkaline Phosphatase 75 Units/L (34-104); Aspartate Amino Transferase 15 Units/L (13-39); BUN/Creatinine Ratio 23 (6-26); Bilirubin,Total 0.4 mg/dL (0.3-1.0); Blood Urea Nitrogen 26 mg/dL (8-23); Calcium 8.7 mg/dL (8.6-10.3); Carbon Dioxide 23 mEq/L (23-29); Chloride 101 mEq/L (98-107); Globulin 3.3 g/dL (2.4-3.5); Glucose 178 mg/dL (70-105); Osmolality,Calculated 279 (280-300); Potassium 5.6 mEq/L (3.5-5.1); Sodium 130 mEq/L (136-145); Total Protein 6.9 g/dL (6.4-8.9); eGFR For African Americans > 60 (> 60); eGFR For Non-African Americans > 60 (> 60)
[2021-02-20] MEDS: Acetaminophen 325 MG TABLET PO PRN (18:21)
[2021-02-20] MEDS: Mirtazapine 15 MG TABLET PO SCH (20:32)
[2021-02-21] MEDS: *HR* HYDROcodone/Acet 5/325 mg TABLET PO PRN ×3 (06:01→18:37)
[2021-02-21 07:57] LABS: BUN/Creatinine Ratio 22 (6-26); Blood Urea Nitrogen 26 mg/dL (8-23); Calcium 8.4 mg/dL (8.6-10.3); Carbon Dioxide 24 mEq/L (23-29); Chloride 103 mEq/L (98-107); Glucose 107 mg/dL (70-105); Osmolality,Calculated 279 (280-300); Potassium 5.6 mEq/L (3.5-5.1); Sodium 132 mEq/L (136-145); eGFR For African Americans > 60 (> 60); eGFR For Non-African Americans > 60 (> 60)
[2021-02-21] MEDS: Insulin LISPRO 300 UNITS/3 ML VIAL SUBQ SCH ×4 (08:25→21:38)
[2021-02-21] MEDS: Acetaminophen 325 MG TABLET PO PRN (08:39)
[2021-02-21] MEDS: *HR* Metformin 500 MG TABLET PO SCH ×2 (08:39→21:34)
[2021-02-21] MEDS: Furosemide 20 MG TABLET PO SCH (08:39)
[2021-02-21] MEDS: Aspirin Enteric Coated 81 MG Tablet PO SCH (08:39)
[2021-02-21] MEDS: Ascorbic Acid 500 MG TABLET PO SCH (08:39)
[2021-02-21] MEDS: Gabapentin 400 MG CAPSULE PO SCH ×4 (08:39→21:33)
[2021-02-21] MEDS: Baclofen 10 MG TABLET PO PRN ×2 (08:40→18:37)
[2021-02-21] MEDS: Cyanocobalamin (B-12) 1,000 MCG TABLET PO SCH (08:40)
[2021-02-21] MEDS: (Linagliptin [Tradjenta] 5 MG Tablet) PO SCH (08:40)
[2021-02-21] MEDS: Fluconazole 100 MG TABLET PO SCH (08:40)
[2021-02-21] MEDS: amLODIPine 5 MG TABLET PO SCH (08:40)
[2021-02-21] MEDS: QUEtiapine Fumarate 25 MG TABLET PO SCH ×2 (08:40→21:35)
[2021-02-21] MEDS: PARoxetine 20 MG TABLET PO SCH (08:40)
[2021-02-21] MEDS: Insulin NPH/REG 70/30 100 UNIT/ML (x5UNIT) SUBQ SCH (11:38)
[2021-02-21] MEDS: Mirtazapine 15 MG TABLET PO SCH (21:34)
[2021-02-22] MEDS: *HR* HYDROcodone/Acet 5/325 mg TABLET PO PRN ×3 (04:36→17:52)
[2021-02-22 09:08] LABS: BUN/Creatinine Ratio 20 (6-26); Blood Urea Nitrogen 20 mg/dL (8-23); Calcium 8.5 mg/dL (8.6-10.3); Carbon Dioxide 25 mEq/L (23-29); Chloride 101 mEq/L (98-107); Glucose 222 mg/dL (70-105); Osmolality,Calculated 283 (280-300); Potassium 5.3 mEq/L (3.5-5.1); Sodium 132 mEq/L (136-145); eGFR For African Americans > 60 (> 60); eGFR For Non-African Americans > 60 (> 60)
[2021-02-22] MEDS: Ascorbic Acid 500 MG TABLET PO SCH (09:28)
[2021-02-22] MEDS: Aspirin Enteric Coated 81 MG Tablet PO SCH (09:28)
[2021-02-22] MEDS: amLODIPine 5 MG TABLET PO SCH (09:29)
[2021-02-22] MEDS: Fluconazole 100 MG TABLET PO SCH (09:29)
[2021-02-22] MEDS: Gabapentin 400 MG CAPSULE PO SCH ×4 (09:29→21:04)
[2021-02-22] MEDS: QUEtiapine Fumarate 25 MG TABLET PO SCH ×2 (09:29→21:04)
[2021-02-22] MEDS: *HR* Metformin 500 MG TABLET PO SCH ×2 (09:29→21:04)
[2021-02-22] MEDS: Furosemide 20 MG TABLET PO SCH (09:29)
[2021-02-22] MEDS: Insulin NPH/REG 70/30 100 UNIT/ML (x5UNIT) SUBQ SCH (09:30)
[2021-02-22] MEDS: (Linagliptin [Tradjenta] 5 MG Tablet) PO SCH (09:30)
[2021-02-22] MEDS: Cyanocobalamin (B-12) 1,000 MCG TABLET PO SCH (09:30)
[2021-02-22] MEDS: PARoxetine 20 MG TABLET PO SCH (09:30)
[2021-02-22] MEDS: Insulin LISPRO 300 UNITS/3 ML VIAL SUBQ SCH ×4 (09:39→20:28)
[2021-02-22] MEDS: Mirtazapine 15 MG TABLET PO SCH (21:04)
[2021-02-23] MEDS: *HR* HYDROcodone/Acet 5/325 mg TABLET PO PRN ×3 (03:30→17:41)
[2021-02-23] MEDS: amLODIPine 5 MG TABLET PO SCH (08:56)
[2021-02-23] MEDS: QUEtiapine Fumarate 25 MG TABLET PO SCH ×2 (08:56→21:31)
[2021-02-23] MEDS: Cyanocobalamin (B-12) 1,000 MCG TABLET PO SCH (08:56)
[2021-02-23] MEDS: Aspirin Enteric Coated 81 MG Tablet PO SCH (08:56)
[2021-02-23] MEDS: Ascorbic Acid 500 MG TABLET PO SCH (08:57)
[2021-02-23] MEDS: Furosemide 20 MG TABLET PO SCH (08:57)
[2021-02-23] MEDS: PARoxetine 20 MG TABLET PO SCH (08:57)
[2021-02-23] MEDS: Insulin NPH/REG 70/30 100 UNIT/ML (x5UNIT) SUBQ SCH (08:57)
[2021-02-23] MEDS: *HR* Metformin 500 MG TABLET PO SCH ×2 (08:57→21:27)
[2021-02-23] MEDS: Gabapentin 400 MG CAPSULE PO SCH ×4 (08:57→21:30)
[2021-02-23] MEDS: Fluconazole 100 MG TABLET PO SCH (08:57)
[2021-02-23] MEDS: (Linagliptin [Tradjenta] 5 MG Tablet) PO SCH (08:58)
[2021-02-23] MEDS: Insulin LISPRO 300 UNITS/3 ML VIAL SUBQ SCH ×4 (08:58→21:27)
[2021-02-23] MEDS: Mirtazapine 15 MG TABLET PO SCH (21:30)
[2021-02-23] MEDS: Baclofen 10 MG TABLET PO PRN (21:30)
[2021-02-23] MEDS: Doxycycline 100 MG CAPSULE PO SCH (21:31)
[2021-02-24] MEDS: *HR* HYDROcodone/Acet 5/325 mg TABLET PO PRN ×4 (02:40→21:59)
[2021-02-24] MEDS: Insulin LISPRO 300 UNITS/3 ML VIAL SUBQ SCH ×4 (08:14→21:58)
[2021-02-24] MEDS: QUEtiapine Fumarate 25 MG TABLET PO SCH ×2 (08:35→21:58)
[2021-02-24] MEDS: Aspirin Enteric Coated 81 MG Tablet PO SCH (08:35)
[2021-02-24] MEDS: amLODIPine 5 MG TABLET PO SCH (08:35)
[2021-02-24] MEDS: Gabapentin 400 MG CAPSULE PO SCH ×4 (08:36→21:59)
[2021-02-24] MEDS: *HR* Metformin 500 MG TABLET PO SCH ×2 (08:36→18:13)
[2021-02-24] MEDS: Doxycycline 100 MG CAPSULE PO SCH ×2 (08:37→21:58)
[2021-02-24] MEDS: Fluconazole 100 MG TABLET PO SCH (08:37)
[2021-02-24] MEDS: PARoxetine 20 MG TABLET PO SCH (08:37)
[2021-02-24] MEDS: Cyanocobalamin (B-12) 1,000 MCG TABLET PO SCH (08:38)
[2021-02-24] MEDS: Furosemide 20 MG TABLET PO SCH (08:38)
[2021-02-24] MEDS: Ascorbic Acid 500 MG TABLET PO SCH (08:38)
[2021-02-24] MEDS: Insulin NPH/REG 70/30 100 UNIT/ML (x5UNIT) SUBQ SCH (08:39)
[2021-02-24] MEDS: (Linagliptin [Tradjenta] 5 MG Tablet) PO SCH (08:39)
[2021-02-24 09:15] LABS: BUN/Creatinine Ratio 23 (6-26); Blood Urea Nitrogen 18 mg/dL (8-23); Calcium 8.7 mg/dL (8.6-10.3); Carbon Dioxide 26 mEq/L (23-29); Chloride 101 mEq/L (98-107); Glucose 137 mg/dL (70-105); Osmolality,Calculated 282 (280-300); Potassium 4.6 mEq/L (3.5-5.1); Sodium 134 mEq/L (136-145); eGFR For African Americans > 60 (> 60); eGFR For Non-African Americans > 60 (> 60)
[2021-02-24] MEDS: Baclofen 10 MG TABLET PO PRN (21:58)
[2021-02-24] MEDS: Mirtazapine 15 MG TABLET PO SCH (21:59)
[2021-02-25] MEDS: *HR* HYDROcodone/Acet 5/325 mg TABLET PO PRN ×3 (06:11→22:58)
[2021-02-25] MEDS: PARoxetine 20 MG TABLET PO SCH (07:56)
[2021-02-25] MEDS: Aspirin Enteric Coated 81 MG Tablet PO SCH (07:56)
[2021-02-25] MEDS: Cyanocobalamin (B-12) 1,000 MCG TABLET PO SCH (07:57)
[2021-02-25] MEDS: Gabapentin 400 MG CAPSULE PO SCH ×4 (07:57→22:59)
[2021-02-25] MEDS: *HR* Metformin 500 MG TABLET PO SCH ×2 (07:57→16:54)
[2021-02-25] MEDS: QUEtiapine Fumarate 25 MG TABLET PO SCH ×2 (07:58→23:00)
[2021-02-25] MEDS: Doxycycline 100 MG CAPSULE PO SCH ×2 (07:58→23:01)
[2021-02-25] MEDS: Ascorbic Acid 500 MG TABLET PO SCH (07:58)
[2021-02-25] MEDS: amLODIPine 5 MG TABLET PO SCH (07:58)
[2021-02-25] MEDS: Fluconazole 100 MG TABLET PO SCH (07:59)
[2021-02-25] MEDS: Furosemide 20 MG TABLET PO SCH (07:59)
[2021-02-25] MEDS: Insulin LISPRO 300 UNITS/3 ML VIAL SUBQ SCH ×4 (08:01→23:01)
[2021-02-25] MEDS: (Linagliptin [Tradjenta] 5 MG Tablet) PO SCH (08:01)
[2021-02-25] MEDS: Mirtazapine 15 MG TABLET PO SCH (22:59)
[2021-02-25] MEDS: Baclofen 10 MG TABLET PO PRN (23:00)
[2021-02-26] MEDS: *HR* HYDROcodone/Acet 5/325 mg TABLET PO PRN ×3 (06:19→18:42)
[2021-02-26] MEDS: Baclofen 10 MG TABLET PO PRN (06:20)
[2021-02-26] MEDS: Doxycycline 100 MG CAPSULE PO SCH ×2 (08:08→20:18)
[2021-02-26] MEDS: Cyanocobalamin (B-12) 1,000 MCG TABLET PO SCH (08:08)
[2021-02-26] MEDS: Ascorbic Acid 500 MG TABLET PO SCH (08:08)
[2021-02-26] MEDS: amLODIPine 5 MG TABLET PO SCH (08:09)
[2021-02-26] MEDS: QUEtiapine Fumarate 25 MG TABLET PO SCH ×2 (08:09→20:17)
[2021-02-26] MEDS: Aspirin Enteric Coated 81 MG Tablet PO SCH (08:10)
[2021-02-26] MEDS: PARoxetine 20 MG TABLET PO SCH (08:10)
[2021-02-26] MEDS: Gabapentin 400 MG CAPSULE PO SCH ×4 (08:10→20:16)
[2021-02-26] MEDS: Fluconazole 100 MG TABLET PO SCH (08:11)
[2021-02-26] MEDS: *HR* Metformin 500 MG TABLET PO SCH ×2 (08:11→16:18)
[2021-02-26] MEDS: Insulin LISPRO 300 UNITS/3 ML VIAL SUBQ SCH ×3 (08:11→16:18)
[2021-02-26] MEDS: Furosemide 20 MG TABLET PO SCH (08:11)
[2021-02-26] MEDS: (Linagliptin [Tradjenta] 5 MG Tablet) PO SCH (10:55)
[2021-02-26] MEDS: Mirtazapine 15 MG TABLET PO SCH (20:17)
[2021-02-26] MEDS ORDERED: Insulin LISPRO 300 UNITS/3 ML VIAL SUBQ SCH (21:00)
[2021-02-27] MEDS: *HR* HYDROcodone/Acet 5/325 mg TABLET PO PRN ×2 (03:57→10:42)
[2021-02-27] MEDS: Baclofen 10 MG TABLET PO PRN (06:15)
[2021-02-27 08:02] VITALS: BP 123/75; PULSE 72; RESP 16; TEMP 98.3; O2SAT 95
[2021-02-27] MEDS: Furosemide 20 MG TABLET PO SCH (09:47)
[2021-02-27] MEDS: Doxycycline 100 MG CAPSULE PO SCH (09:47)
[2021-02-27] MEDS: *HR* Metformin 500 MG TABLET PO SCH (09:47)
[2021-02-27] MEDS: Aspirin Enteric Coated 81 MG Tablet PO SCH (09:47)
[2021-02-27] MEDS: PARoxetine 20 MG TABLET PO SCH (09:48)
[2021-02-27] MEDS: amLODIPine 5 MG TABLET PO SCH (09:48)
[2021-02-27] MEDS: Ascorbic Acid 500 MG TABLET PO SCH (09:48)
[2021-02-27] MEDS: QUEtiapine Fumarate 25 MG TABLET PO SCH (09:48)
[2021-02-27] MEDS: (Linagliptin [Tradjenta] 5 MG Tablet) PO SCH (09:48)
[2021-02-27] MEDS: Fluconazole 100 MG TABLET PO SCH (09:48)
[2021-02-27] MEDS: Gabapentin 400 MG CAPSULE PO SCH ×2 (09:48→12:04)
[2021-02-27] MEDS: Insulin LISPRO 300 UNITS/3 ML VIAL SUBQ SCH ×2 (09:50→12:05)
[2021-02-27] MEDS: Cyanocobalamin (B-12) 1,000 MCG TABLET PO SCH (10:16)
== END 2021-02-27 14:49 | disposition home health service (06) | DRG 945 ==
LOC: INPPIK 02-12 00:05
PROVIDERS: ADMIT Family Medicine; ATTEND Family Medicine